=== PATIENT | male | born 1950 | race Caucasian/White ===

== ENCOUNTER 2017-02-04 11:37 | Inpatient (IN) ==
--- NOTE | 2017-02-04 13:14 | Emergency Department Note ---
Disposition Clinical Impression: NSTEMI (non-ST elevated myocardial infarction) Disposition: Admitted As Inpatient Condition: Fair Time of Disposition: 14:14 Chest Pain HPI - General Chief Complaint: ED Chest Pain Stated Complaint: Upper arms/shoulder pain,don't feel reight Time Seen by Provider: 02/04/17 12:00 Source: patient Limitations: no limitations Vital Signs Reviewed: Yes Nursing Notes Reviewed: Yes - History of Present Illness HPI Narrative: Presents with back pain which started today at home and is sharp and constant radiating across the back of both shoulders and also involves the chest. He does have associated diaphoresis and dyspnea. He denies any pleuritic aspect. Has had several years of lightheadedness but no worsening lightheadedness at this point. No pain or swelling of the lower extremities. No upper respiratory symptoms or blood in the urine or stool. No medication has been used. Social history: No smoking, occasional alcohol, no drugs. Family history positive for heart disease with his father Severity scale (1-10): 10 - Related Data Home Medications Medication Instructions Recorded Confirmed Aspirin [Lo-Dose Aspirin EC] 81 mg PO DAILY 02/04/17 02/04/17 Atorvastatin Calcium [Lipitor] 20 mg PO QPM 02/04/17 02/04/17 Cyanocobalamin (B-12) [Vitamin B12] 1,000 mcg PO DAILY 02/04/17 02/04/17 Lisinopril [Zestril] 10 mg PO DAILY 02/04/17 02/04/17 Multivit-Min/FA/Lycopen/Lutein [A 1 tab PO DAILY 02/04/17 02/04/17 Thru Z Select Multivit Tab] Allergies Allergy/AdvReac Type Severity Reaction Status Date / Time Penicillins Allergy Hives Verified 02/04/17 11:48 Review of Systems: Constitutional: No fever Vision: No blurred vision ENT: No rhinorrhea Respiratory: No cough Allergic: No allergies : No blood in urine GI: No blood in stool Hematologic: No bruising Dermatologic: + rash bet fingers left hand Musculoskeletal: No pain in the extremities Neuro: No numbness of the extremities Chest Pain PMH - Past Medical History Medical history: Reports: hyperlipidemia, hypertension Psychiatric history: Reports: no psych history - Social History Smoking Status: Never smoker Alcohol use: Reports: occasionally Drug use: Reports: none Physical Exam CONSTITUTIONAL: Well-appearing; well-nourished; A&O X 3, in no apparent distress HEAD: Normocephalic; atraumatic EYES: PERRL, no scleral icterus NOSE: The nose is normal in appearance without rhinorrhea NECK: No JVD or distended neck veins RESP: Normal chest excursion with respiration; breath sounds clear and equal bilaterally; no wheezes, rhonchi, or rales CARD: Regular rhythm, without murmurs, rub or gallop Chest: Normal in appearance ABD: Non-distended; non-tender, soft, without rigidity, rebound or guarding,no pulsatile mass SKIN: Normal for age and race; warm and dry without diaphoresis ; no apparent lesions EXTREMITIES: Pulses are 2 plus and equal times 4 extremities, no peripheral edema or calf muscle pain - General Limitations: no limitations General appearance: alert, in no apparent distress Course Vital Signs Temperature 98.1 F 02/04/17 11:41 Pulse Rate 92 02/04/17 11:41 Respiratory Rate 20 02/04/17 11:41 Blood Pressure 214/111 02/04/17 11:41 O2 Sat by Pulse Oximetry 96 02/04/17 11:41 Temperature 98.1 F 02/04/17 11:41 Pulse Rate 71 02/04/17 14:44 Respiratory Rate 18 02/04/17 14:44 Blood Pressure 174/99 02/04/17 14:44 O2 Sat by Pulse Oximetry 97 02/04/17 14:44 Oxygen Delivery Oxygen Delivery Room Air Chest Pain - MDM Narrative Medical decision making narrative: I did see the patient upon arrival spoke with him and have reviewed the patient' s previous test results including a recent stress test showed reversible ischemia. The patient now does have pain across her shoulders, belching, dyspnea, diaphoresis and the concerns for ischemia. Likelihood of aortic dissection is very low however the patient will be admitted and watched closely. Chest x-ray is negative. The patient's symptoms likely represent acute coronary syndrome. I did review the EKG showed normal sinus rhythm with a rate of 84 without acute ischemic change. MD interval and QRS duration are normal. No evidence of arrhythmia. 1304 I did just see the patient again and the patient's repeat the blood pressure is 180/92. No antihypertensive therapy at this time 1316 I did review the patient's laboratory results with an elevated troponin and the patient will be admitted to the hospital. I did see him again just a few minutes ago and his discomfort is almost completely resolved. EKG will be repeated, he has not yet taken his aspirin today so receive aspirin 325 mg as well as 1 inch nitroglycerin paste. I did consult cardiology so they can see the patient as a inpatient the patient does not have emergent catheterization indications at this time. The patient is comfortable to approach. I did speak with the hospitalist who accepted the patient for admission. 1413 I did review the repeat EKG showing normal sinus rhythm with a rate of 69 without acute ischemic changes. The hospitalist does recommend a CT of the chest and so I did order discussed. 1449 - Medical Records Medical records reviewed: Yes I reviewed the patient's medical records. - Lab Data Lab results reviewed: Yes I reviewed the patient's lab results. Result diagrams: 02/04/17 13:18 02/04/17 13:18 Lab Results 02/04/17 02/04/17 02/04/17 Range/Units 13:18 13:18 13:18 WBC 8.1 (4.3-11.1) K/mcL RBC 4.36 (4.19-5.50) M/mcL Hgb 14.4 (12.9-16.9) g/dL Hct 42.0 (37.5-50.1) % MCV 96.3 (83.0-100.0) fL MCH 33.0 (28.0-33.3) pg MCHC 34.3 (31.6-35.5) g/dL RDW 12.9 (11.5-14.5) % Plt Count 187 (140-400) K/mcL MPV 8.5 L (9.4-12.4) fL Immature Gran % 0.4 (0-4) % Seg Neutrophils % 76.2 % Lymphocytes % 14.9 % Monocytes % 6.6 % Eosinophils % 1.5 % Basophils % 0.4 % Neutrophils # 6.2 (1.6-8.9) K/mcL Lymphocytes # 1.2 (0.6-4.6) K/mcL Monocytes # 0.5 (0.0-1.3) K/mcL Eosinophils # 0.1 (0.0-0.6) K/mcL Basophils # 0.0 (0.0-0.2) K/mcL Sodium 138 (136-145) mEq/L Potassium 4.3 (3.5-4.5) mEq/L Chloride 104 (98-109) mEq/L Carbon Dioxide 26 (19-29) mEq/L BUN 11 (8-26) mg/dL Creatinine 0.82 (0.72-1.25) mg/dL Est GFR ( Amer) > 60 (> 60) Est GFR (Non-Af Amer) > 60 (> 60) BUN/Creatinine Ratio 13 (6-26) Glucose 127 H (70-99) mg/dL Calculated Osmolality 287 (280-300) Calcium 9.8 (8.6-10.8) mg/dL Troponin I 0.09 H* (0-0.03) ng/mL - Radiology Data Radiology results reviewed: Yes I reviewed the patient's radiology results. Critical Care Time Critical Care Time: No
[2017-02-04 13:23] LABS: Basophils % 0.4 %; Eosinophils # 0.1 K/mcL (0.0-0.6); Eosinophils % 1.5 %; Hemoglobin 14.4 g/dL (12.9-16.9); Immature Granulocytes % 0.4 % (0-4); Lymphocytes # 1.2 K/mcL (0.6-4.6); Lymphocytes % 14.9 %; Mean Corpuscular HGB Conc 34.3 g/dL (31.6-35.5); Mean Corpuscular Volume 96.3 fL (83.0-100.0); Mean Platelet Volume 8.5 fL (9.4-12.4); Monocytes # 0.5 K/mcL (0.0-1.3); Monocytes % 6.6 %; Neutrophils # 6.2 K/mcL (1.6-8.9); Platelet Count 187 K/mcL (140-400); Red Blood Count 4.36 M/mcL (4.19-5.50); Red Cell Distribution Width 12.9 % (11.5-14.5); Segmented Neutrophils % 76.2 %
[2017-02-04 13:35] LABS: BUN/Creatinine Ratio 13 (6-26); Blood Urea Nitrogen 11 mg/dL (8-26); Calcium 9.8 mg/dL (8.6-10.8); Carbon Dioxide 26 mEq/L (19-29); Chloride 104 mEq/L (98-109); Glucose 127 mg/dL (70-99); Osmolality,Calculated 287 (280-300); Potassium 4.3 mEq/L (3.5-4.5); Sodium 138 mEq/L (136-145); eGFR For African Americans > 60 (> 60); eGFR For Non-African Americans > 60 (> 60)
[2017-02-04] MEDS ORDERED: Aspirin 325 MG TABLET PO ONE (14:11)
[2017-02-04] MEDS ORDERED: Nitroglycerin 1 INCH/GM PACKET TP ONE (14:11)
[2017-02-04] MEDS ORDERED: *HR* Morphine 2 MG/ML SYRINGE IVP ONE (15:59)
[2017-02-04] MEDS ORDERED: *HR* Morphine 2 MG/ML SYRINGE IVP PRN (16:15)
[2017-02-04] MEDS ORDERED: Naloxone 0.4 MG/ML INJ IVP PRN (16:15)
--- NOTE | 2017-02-04 16:31 | Internal Med History&Physical ---
Date of Encounter: 02/04/17 Time of Encounter: 16:28 Assessment and Plan (1) NSTEMI (non-ST elevated myocardial infarction) Current visit: Yes Status: Acute Chest pain/non-STEMI 66/male Was previously evaluated and has a positive stress test. Came in with a left-sided precordial pain and shoulder pain on the left side Noted that in the emergency room the troponin was 0.09. Cardiology was consulted. Plan: Admitted as an observation. We will trend the troponin. Aspirin/statin/lisinopril We will add beta fredo. We will follow recommendations from cardiology. (2) Hypertension Current visit: Yes Status: Acute Patient's blood pressure is controlled and we will continue the same medication right now. Qualifiers: Hypertension type: essential hypertension Qualified Code(s): I10 - Essential (primary) hypertension (3) Positive cardiac stress test Current visit: Yes Status: Acute Patient is a positive stress test/now patient has a positive troponin. We will wait for cardiology recommendations. (4) DVT prophylaxis Current visit: Yes Status: Acute SCD Medical decision making this patient has a moderate to severe risk of worsening in spite of being on appropriate medication due to the underlying complex comorbid conditions. Internal Medicine - H&P: HPI Chief complaint: Chest pain Admitted From: Emergency Dept Plans for Post Hospital Care: Home History of present illness: PCP: Dr. Perez from [facility]. brief past medical history: hypertension, hyperlipidemia, coronary artery disease and mild obesity. History of present medical illness: Patient was experiencing left-sided precordial chest pain, nonradiating initially followed by radiating to the left arm, worsened with exercise and relieved by rest. Patient was concerned about this pain and that was the reason he was trying to get all of his primary care. He was not able to get out of his primary care and that is the reason he came to the emergency room. Patient denies shortness of breath, abdominal pain, nausea, vomiting, dizziness and diarrhea. Workup in the emergency room: Patient was evaluated in the emergency room. Basic workup in terms of lab draw was done. CTA chest was done which was negative for any pulmonary emboli/abdominal aortic aneurysm. Reason for admission: Chest pain to rule out acute coronary syndrome: Heart score: 4 Family history: Noncontributory Past Med Surg Social Fam HX - Past Medical History Medical history: hyperlipidemia, hypertension Psychiatric history: no psych history - Social History Smoking Status: Never smoker Smokeless Tobacco Status: No Alcohol use: occasionally Drug use: none - Family History Father Living Status: Age at : 60 Hx Family Cardiac Disorders: Yes ([place]) Hx Family Respiratory Disorders: No Hx Family Cancer: No Hx Family GI Disorders: No Hx Family Genitourinary Disorders: No Hx Family Endocrine Disorder: No Hx Family Musculoskeletal Disorders: No Hx Family Neuromuscular Disorders: No Hx Family Neurologic Disorders: No Hx Family HEENT Disorders: No Hx Family Autoimmune Disorders: No Hx Family Reproductive Disorders: No Hx Family Psychosocial Disorders: No Hx Family Medical Disorders: No Internal Medicine - H&P: Meds Aspirin [Lo-Dose Aspirin EC] 81 mg PO DAILY 02/04/17 [History] Atorvastatin Calcium [Lipitor] 20 mg PO QPM 02/04/17 [History] Cyanocobalamin (B-12) [Vitamin B12] 1,000 mcg PO DAILY 02/04/17 [History] Lisinopril [Zestril] 10 mg PO DAILY 02/04/17 [History] Multivit-Min/FA/Lycopen/Lutein [A Thru Z Select Multivit Tab] 1 tab PO DAILY 12/13 [History] 3 Allergy/AdvReac Type Severity Reaction Status Date / Time Penicillins Allergy Hives Verified 02/04/17 11:48 All Systems PM: A 10-system review of systems was performed and is negative for pertinent findings except as documented above in the HPI. - Constitutional Constitutional: no chills, no fever(s), no night sweats - EENT Eyes: no change in vision, no discharge, no pain, no photophobia Ears: no ear discharge, no ear pain, no tinnitus Nose, mouth and throat: no dysphagia, no nasal discharge, no neck pain, no sore throat - Cardiovascular Cardiovascular ROS IM: chest pain, diaphoresis, dyspnea, no lightheadedness, no palpitations, no syncope Additional comments: Left shoulder pain - Respiratory Respiratory: no cough, no dyspnea, no wheezing, no excessive phlegm production - Gastrointestinal Gastrointestinal: no abdominal pain, no diarrhea, no hematemesis, no hematochezia, no melena, no nausea, no vomiting - Musculoskeletal Musculoskeletal ROS IM: no numbness, no tingling - Integumentary Integumentary IM: no rash, no unusual bruising - Neurological Neurological ROS: no confusion, no convulsions, no focal weakness, no numbness, no tingling, no tremor(s) - Hematologic/Lymphatic Hematologic/Lymphatic: no easy bruising - Constitutional Vitals: Temp Pulse Resp BP Pulse Ox 97.6 F 74 19 194/116 96 02/04/17 15:22 02/04/17 15:22 02/04/17 15:22 02/04/17 15:22 02/04/17 15:22 General appearance: Present: A&O X 3, pleasant, no acute distress, answers questions appropriately - Head Head exam: Present: atraumatic, normocephalic - Eye Eye exam: Present: PERRL, conjuntiva pink, sclera anicteric Pupils: Present: PERRL - Neck Neck exam general surgery: Present: supple, trachea midline. Absent: lymphadenopathy - Respiratory Respiratory exam: Present: CTAB. Absent: accessory muscle use, rales, rhonchi, wheezes - Cardiovascular Cardiovascular exam: Present: RRR, +S1, +S2. Absent: diastolic murmur, gallop, rubs, systolic murmur - GI/Abdominal GI/Abdominal exam: Present: normal bowel sounds, soft, no peritoneal signs. Absent: distended, tenderness - Extremities Exam Extremities exam: Present: warm, radial pulses palpable and symmetrical. Absent : calf tenderness, cyanotic, pedal edema - Neurological Exam Neurological exam: Present: CN II-XII intact, oriented X3, no focal deficits. Absent: pronater drift, facial droop, speech deficit - Skin Skin exam: Present: dry, intact Internal Med - H&P Results - Labs CBC & Chem 7: 02/04/17 13:18 02/04/17 13:18 - Impressions ITS Impressions Abdomen/Pelvis CTA 02/04/17 14:45 IMPRESSION: No acute process. No acute pulmonary emboli, aortic dissection or aneurysm is noted. D/ / Yamil Arzate MD / Yamil Arzate MD Interpreting Provider: Yamil Arzate MD
[2017-02-04] MEDS ORDERED: *HR* Heparin 5,000 UNIT/ML VIAL IVP ONE (18:24)
[2017-02-04] MEDS ORDERED: *HR* Heparin 5,000 UNIT/ML VIAL IVP PRN ×2 (18:24)
[2017-02-04] MEDS ORDERED: Nitroglycerin 25 MG/250 ML INFUS..BTL IVC SCH ×2 (18:30→18:44)
--- NOTE | 2017-02-04 18:31 | Electrocardiograph Report ---
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
[2017-02-04] MEDS ORDERED: 0.9 % Sodium Chloride 250 ML ONE (18:53)
[2017-02-04 19:07] LABS: Hematocrit 41.2 % (37.5-50.1); Hemoglobin 14.2 g/dL (12.9-16.9); Mean Corpuscular HGB Conc 34.5 g/dL (31.6-35.5); Mean Corpuscular Hemoglobin 33.4 pg (28.0-33.3); Mean Corpuscular Volume 96.9 fL (83.0-100.0); Mean Platelet Volume 8.6 fL (9.4-12.4); Platelet Count 205 K/mcL (140-400); Red Blood Count 4.25 M/mcL (4.19-5.50); Red Cell Distribution Width 12.9 % (11.5-14.5)
[2017-02-04 19:13] LABS: Activated Partial Thrombo Time 30.3 Seconds (26.0-36.0); INR 1.1; Prothrombin Time 11.9 Seconds (9.4-12.1)
[2017-02-04] MEDS: Heparin 25,000 UNIT/500 ML D5W 25,000 UNIT/500 ML MLS IVC SCH (19:52)
[2017-02-05 05:52] LABS: Basophils # 0.1 K/mcL (0.0-0.2); Basophils % 0.5 %; Eosinophils # 0.2 K/mcL (0.0-0.6); Eosinophils % 1.7 %; Hematocrit 40.8 % (37.5-50.1); Hemoglobin 14.1 g/dL (12.9-16.9); Immature Granulocytes % 0.5 % (0-4); Lymphocytes # 2.7 K/mcL (0.6-4.6); Lymphocytes % 25.4 %; Mean Corpuscular HGB Conc 34.6 g/dL (31.6-35.5); Mean Corpuscular Hemoglobin 33.6 pg (28.0-33.3); Mean Corpuscular Volume 97.1 fL (83.0-100.0); Mean Platelet Volume 9.1 fL (9.4-12.4); Monocytes # 0.7 K/mcL (0.0-1.3); Neutrophils # 6.8 K/mcL (1.6-8.9); Platelet Count 228 K/mcL (140-400); Red Cell Distribution Width 13.1 % (11.5-14.5); Segmented Neutrophils % 64.9 %
[2017-02-05 05:58] LABS: INR 1.1; Prothrombin Time 11.8 Seconds (9.4-12.1)
[2017-02-05 06:24] LABS: Alanine Aminotransferase 57 Units/L (0-55); Albumin 3.7 g/dL (3.5-5.0); Alkaline Phosphatase 74 Units/L (38-126); Aspartate Amino Transferase 127 Units/L (5-34); BUN/Creatinine Ratio 11 (6-26); Bilirubin,Total 0.7 mg/dL (0.2-1.2); Blood Urea Nitrogen 9 mg/dL (8-26); Calcium 9.2 mg/dL (8.6-10.8); Carbon Dioxide 27 mEq/L (19-29); Chloride 102 mEq/L (98-109); Chol/HDL Ratio 3.2 (0-4.9); Cholesterol 130 mg/dL (< 200); Globulin 3.6 g/dL (2.4-3.5); Glucose 132 mg/dL (70-99); HDL Cholesterol 41 mg/dL (40-59); LDL Cholesterol,Calculated 67 mg/dL (0-99); Osmolality,Calculated 285 (280-300); Phosphorous 3.2 mg/dL (2.3-4.7); Potassium 4.1 mEq/L (3.5-4.5); Sodium 137 mEq/L (136-145); Total Protein 7.3 g/dL (6.0-8.3); Triglycerides 109 mg/dL (< 150); eGFR For African Americans > 60 (> 60); eGFR For Non-African Americans > 60 (> 60)
--- NOTE | 2017-02-05 08:39 | Cardiology Consult Note ---
Date of Encounter: 02/05/17 Time of Encounter: 08:00 Assessment and Plan (1) NSTEMI (non-ST elevated myocardial infarction) Current Visit: Yes Status: Acute Troponin elevated, 0.09, 1.35, 5.64, 21.76. No previous history of CAD. Cardiac risk factors include HTN, HLD, and family history (brother underwent CABG age 50). TTE pending. [facility] R/B/A reviewed with patient and and patient agrees to proceed. Continue heparin gtt. No NTG due to causing hypotension. Continue asa, statin, and bb. Cardiac rehab consult. (2) Hypertension Current Visit: Yes Status: Acute Htn urgency on admission. B/p improved. Continue lopressor and restart home dose of zestril. Qualifiers: Hypertension type: essential hypertension Qualified Code(s): I10 - Essential (primary) hypertension Discussion w patient/family: The assessment and plan as outlined above was discussed with the patient and/or family members who expressed understanding and agreement. All questions were answered. Thank you for involving us in the care of your patient. Please call with any questions. History of Present Illness Consult date: 02/05/17 Requesting physician: Mike Trevino Consult reason: NSTEMI Chief complaint: bilateral shoulder and arm pain History of present illness: Mr. Frisa is a 66-year-old with a history of essential HTN, carotid artery stenosis, HLD, and previous abnormal stress test who presented with bilateral shoulder, arm, and back pain. The pain started when he was eating breakfast. Reports pain was severe 10/10 on the pain scale. He presented to the ED and his b/p was found to be 214/111. He was given NTG with some relief of pain. He reports the NTG made him feel warm and really lightheaded. He was started on NTG gtt and his b/p dropped in the 80's systolic. NTG was discontinued. He was started on heparin gtt and reports his pain improved. Initial EKG showed no acute ST changes. Troponin was 0.09. Troponin trended upward overnight to as high as 21.76 this morning. He reports mild pain in his shoulders this morning. Patient reported exertional dyspnea and lightheadedness intermittently over the last month. Mild shoulder pain at times. He underwent stress test earlier this year and was found to have a small, distal inferolateral defect possibly due to ischemia. Medical therapy initially recommended due to low risk findings. Reports he initially did well. Symptoms started again one month ago. Previous testing: Holter monitor 11/09/2014: Rare PVCs, PACs. No sustained arrhythmias. Average heart rate 75. Holter monitor 10/16/2016: Average heart rate 75. Occasional PVCs. Rare PACs. No sustained arrhythmias. TTE 11/06/2014: LVEF 60-65%. Moderate diastolic dysfunction. Normal LV, RV size and function. No significant valvular dysfunction. No evidence of pulmonary hypertension. Pharmacological nuclear stress test 10/23/2016: Small, mild intensity, reversible distal inferolateral defect possibly due to ischemia. Gated EF 67%. Carotid duplex 10/23/2016: Right proximal ICA moderate stenosis. Left carotid system minimal plaque formation. Past Med Surg Social Fam HX - Past Medical History Medical history: hyperlipidemia, hypertension, other (PVD) Psychiatric history: no psych history - Social History Smoking Status: Never smoker Smokeless Tobacco Status: No Alcohol use: occasionally Drug use: none - Family History Father Living Status: Age at : 60 Hx Family Cardiac Disorders: Yes ([place]) Hx Family Respiratory Disorders: No Hx Family Cancer: No Hx Family GI Disorders: No Hx Family Genitourinary Disorders: No Hx Family Endocrine Disorder: No Hx Family Musculoskeletal Disorders: No Hx Family Neuromuscular Disorders: No Hx Family Neurologic Disorders: No Hx Family HEENT Disorders: No Hx Family Autoimmune Disorders: No Hx Family Reproductive Disorders: No Hx Family Psychosocial Disorders: No Hx Family Medical Disorders: No Medications and Allergies Aspirin [Lo-Dose Aspirin EC] 81 mg PO DAILY 02/04/17 [History] Atorvastatin Calcium [Lipitor] 20 mg PO QPM 02/04/17 [History] Cyanocobalamin (B-12) [Vitamin B12] 1,000 mcg PO DAILY 02/04/17 [History] Lisinopril [Zestril] 10 mg PO DAILY 02/04/17 [History] Multivit-Min/FA/Lycopen/Lutein [A Thru Z Select Multivit Tab] 1 tab PO DAILY 12/13 [History] 3 Allergy/AdvReac Type Severity Reaction Status Date / Time Penicillins Allergy Hives Verified 02/04/17 11:48 All Systems Review: A 10-system review of systems was performed and is negative for pertinent findings except as documented above in the HPI. Physical Examination Vital Signs, Last 4 Hours Temp Pulse Resp BP Pulse Ox 02/05/17 06:51 98.0 F 70 16 141/93 93 General: Conversant, No Apparent Distress HEENT: Atraumatic, Normocephaly, Mucus Membranes Moist Neck: No JVD, Normal carotid pulses Cardiac: Reg Rate and Rhythm, Normal S1 and S2, No Murmur Lungs: Normal Breath Sounds, No Wheeze, Rales, Rhonchi Neuro: Alert and responsive, No focal deficits noted Abdomen: Soft, Non-Tender Skin: No rashes noted on visualized skin Musculoskeletal: No Chest Wall Tenderness Extremities: No Clubbing, No Cyanosis, No Edema, Normal Pulses Results 02/05/17 04:45 02/05/17 04:45 Lab Results 02/04/17 02/05/17 02/05/17 22:38 01:31 04:45 WBC 10.5 Hgb 14.1 Hct 40.8 Plt Count 228 INR APTT 44.7 H Sodium Potassium Chloride Carbon Dioxide BUN Creatinine Glucose Calcium Magnesium Total Bilirubin AST ALT Alkaline Phosphatase Troponin I 5.64 H* B-Natriuretic Peptide 02/05/17 02/05/17 02/05/17 04:45 04:45 04:45 WBC Hgb Hct Plt Count INR 1.1 APTT Sodium 137 Potassium 4.1 Chloride 102 Carbon Dioxide 27 BUN 9 Creatinine 0.83 Glucose 132 H Calcium 9.2 Magnesium 2.0 Total Bilirubin 0.7 AST 127 H ALT 57 H Alkaline Phosphatase 74 Troponin I B-Natriuretic Peptide 189 H 02/05/17 04:45 WBC Hgb Hct Plt Count INR APTT Sodium Potassium Chloride Carbon Dioxide BUN Creatinine Glucose Calcium Magnesium Total Bilirubin AST ALT Alkaline Phosphatase Troponin I 21.76 H* B-Natriuretic Peptide - Imaging and Cardiology Echo: pending - EKG Interpretation EKG results cardiology: personally reviewed (Sr with no acute ST changes) Consult Discharge Plan - Plan Referrals: Alistair Perez MD [Primary Care Provider] -
[2017-02-05] MEDS ORDERED: Aspirin Enteric Coated 81 MG Tablet PO SCH (09:00)
[2017-02-05] MEDS ORDERED: *HR* Heparin 10,000 UNIT/10 ML VIAL ONE (09:26)
[2017-02-05] MEDS ORDERED: 0.9 % Sodium Chloride 1,000 ML ONE ×2 (09:26→09:49)
[2017-02-05] MEDS ORDERED: Heparin 1,000 UNITS/500 mL NS 500 ML ONE (09:26)
[2017-02-05] MEDS ORDERED: Nitroglycerin 1,000 MCG/10 ML VIAL IV ONE (09:26)
--- NOTE | 2017-02-05 09:38 | Pre-Sedation Evaluation ---
Pre-sedation evaluation - Pre-sedation checklist Date of procedure: 02/05/17 Procedure: [facility] Recent Vitals: Last Vital Signs Temp 98.0 F 02/05/17 06:51 Pulse 70 02/05/17 06:51 Resp 16 02/05/17 06:51 BP 141/93 02/05/17 06:51 Pulse Ox 93 02/05/17 06:51 H&P (including ROS) documented in medical record: Yes Previous reaction to sedatives/anesthetics: No Dietary Status: NPO after Midnight Dentition: No loose teeth or bridges Possible difficult airway: No ASA Classification *see protocol: CLASS II-Mild systemic disease Plan of Care: Pt appropriate candidate for procedure/moderate/conscious sedation
[2017-02-05] MEDS ORDERED: *HR* FentaNYL (PF) 100 MCG/2 ML VIAL ONE (09:49)
[2017-02-05] MEDS ORDERED: *HR* Midazolam HCl 2 MG/2 ML VIAL ONE (09:49)
[2017-02-05] MEDS ORDERED: Tirofiban 12.5 MG/250ML 12.5 MG/250 ML BAG ONE (10:09)
[2017-02-05] MEDS ORDERED: *HR* Ticagrelor 90 MG TABLET ONE (11:26)
[2017-02-05] MEDS ORDERED: *HR* HYDROcodone/Acet 5/325 mg TABLET PO PRN (11:36)
[2017-02-05] MEDS ORDERED: Acetaminophen 325 MG TABLET PO PRN (11:36)
[2017-02-05] MEDS ORDERED: *HR* Morphine 2 MG/ML SYRINGE IVP PRN (11:36)
--- NOTE | 2017-02-05 11:37 | Invasive Diagnostic Lab Proc ---
Name: Armaan Miller Date of Study: 02/05/2017 Date: 1950 Ht: 72.0in Medical Record#: [id number] Age: 66 Wt: 291.01lb Gender: Male BSA: 2.5 Order #: [id number] BMI: 39.42 Physicians Procedure Physician: William Perez MD Referring MD: Referring MD: Staff Name Position Time In Argelia Hernandez RT Scrub 09:44 AM Oleg Menard RN Chief Medical Director 09:44 AM Aline Cifuentes RN Monitor 09:44 AM Indications Indication Non-Stemi Procedures Performed Procedure L HRT ARTERY/VENTRICLE ANGIO Pre-Procedure Checklist Informed consent is complete signed and on chart. H&P is on chart. ID band is on and ID verified with patient. Patient NPO for procedure The procedure was described for the patient and questions were answered. Blood Pressure: 141/93 ECG is on chart. Rhythm: NSR Plan of Care Patient will tolerate the procedure without complications. Adequate level of comfort will be maintained. Hemodynamics will remain stable Patient will recover from procedure without complications. Respiratory function will be maintained. Cardiac rhythm will remain stable. Patient temperature will be maintained. Patient and/or family have verbalized understanding of the procedure. Patient Education Chief Complaint/Reason for Test: Cardiac Cath Developmental Category: Geriatric (65+ years) Developmentally Appropriate for Age: Yes Learning Barriers: None Education Needs: Procedure Education Method: Verbal Information Taught: Cardiac Cath Educational Evaluation: Able to repeat information Intravenous Access Time IV Size Location DC'd Fluid/Drip Rate Units RN 09:40 AM 18g 1 /" Patent On Arrival Lt Antecubital 0.9NaCl 25 ml/hr Oleg Menard RN Allergies Penicillins PCN Vital Signs Time BP (mmHg) HR (bpm) O2 Sat. RR (bpm) LOC 09:56 AM / % 5 = Fully awake and oriented or at pre-proc level 10:32 AM 150 / 99 76 97 % 26 10:37 AM 153 / 98 74 97 % 16 10:42 AM 152 / 99 75 96 % 15 10:47 AM 147 / 97 80 97 % 22 10:52 AM 156 / 97 78 96 % 15 10:57 AM 154 / 96 73 95 % 21 11:02 AM 155 / 100 77 96 % 19 11:07 AM 149 / 95 73 96 % 18 11:12 AM 142 / 82 83 96 % 14 09:52 AM 146 / 95 100 98 % 11 09:57 AM 140 / 89 82 96 % 15 10:02 AM 133 / 90 79 96 % 18 10:07 AM 137 / 93 80 96 % 15 10:12 AM 142 / 81 76 96 % 12 10:17 AM 145 / 91 76 96 % 17 10:22 AM 133 / 94 74 97 % 20 10:27 AM 142 / 98 71 97 % 15 09:56 AM / % 4 = Oriented but drowsy Procedural Medications Time Medication Dose Units Method Given By 09:55 AM Oxygen 2 L/min nasal cannula Oleg Menard RN 09:55 AM Versed 1 mg Intravenous Oleg Menard RN 09:55 AM Fentanyl 50 mcg Intravenous Oleg Menard RN 10:00 AM Lidocaine 2% 10 ml Subcutaneous William Perez MD 10:09 AM Aggrastat Bolus: 66.5 ml Intravenous Oleg Menard RN 10:10 AM Aggrastat 12.5mg/250ml 24 ml/hr Intravenous Oleg Menard RN 10:15 AM Heparin 5000 units Intravenous Oleg Menard RN 11:09 AM Nitroglycerin 100 mcg Intracoronary Tye Perez MD 11:09 AM Nitroglycerin 200 mcg Intracoronary Tye Perez MD 11:17 AM Brilinta 180 mg Orally Oleg Menard RN ASA Classification: CLASS II- Mild systemic disease (i.e. well-controlled diabetes, hypertension, asthma, cigarette smoking) Luna Score Preprocedure Postprocedure Activity 2- Moves 4 extremities sustained head lift Activity Circulation 2- SBP +/= 20 points of pre-anesthetic level Circulation Consciousness 2- Awake and alert oriented x 3 Consciousness O2 Saturation 2- Able to maintain O2 satruation of 92% on room air O2 Saturation Respiratory 2- Able to deep breathe and cough well Respiratory Total Score 10 Total Score Contrast Agent: Isovue Diagnostic Contrast: 407 ml Total Contrast: 407 ml Fluoro Dose: 2689 mGy Activated Clotting Time Time Seconds to Clot 10:13 AM 113 10:54 AM 283 Procedure Log Time Note Enter By 09:40 AM Pt arrived to process laboratory specialist 2 at 09:40 liliana 09:40 AM Wilfredo paged/called 09:40. liliana 09:40 AM Wilfredo responded and notified patient is ready 09:40 [facility] 09:44 AM Argelia Hernandez Position: Scrub Time in: :44 [facility] 09:44 AM Oleg Menard RN Position: Chief Medical Director Time in: :44 [facility] 09:44 AM Aline Cifuentes RN Position: Monitor Time in: :44 [facility] 09:44 AM Patient charges- Angio tray pack, Navilyst 3mm J, Pulse Oximetry and ACIST tubing and transducer [facility] 09:44 AM Case Delayed no, inpatient [facility] 09:50 AM Physician arrived 09:50 [facility] 09:50 AM Meet and greet completed [facility] 09:50 AM Sign in performed according to hospital policy. [facility] 09:50 AM Procedure start 09:50 [facility] 09:51 AM CathStat 09:51 AM Vitals capture started with the following parameters, Patient=Adult, Interval=5 min, Initial Bbvfltoa=417 mmHg, Deflation Rate=5 mmHg, Cuff placed on Left Arm 09:52 AM HO=391 bpm, VURN=775/95 mmhg, SpO2=98.0 %, Resp=11 B/min 09:55 AM Hair removed from procedure site in procedure lab using clippers. Bilateral groin prepped with Chloraprep by Aline Cifuentes RN, safety strap applied then patient was draped. Skin intact. [facility] 09:55 AM Time: 09:55 Oxygen on at 2 L/min per [facility] cann[facility] AM Time: 09:55 Versed 1 mg Intravenous Given by [facility] 09:55 AM Time: 09:55 Fentanyl 50 mcg Intravenous Given by [facility] 09:56 AM Time: 09:56 Patient comfortable and pain free: Yes [facility] :56 AM Time: 09:56LOC: 5 = Fully awake and oriented or at pre-proc level [facility] 09:56 AM Clinical Presentation: Non-STEMI [facility] 09:57 AM HR=82 bpm, TJLE=626/89 mmhg, SpO2=96.0 %, Resp=15 B/min, Comment=nsr 09:58 AM Pressure channel 1 zeroed. 10:00 AM Time out performed according to hospital policy scoates 10:00 AM Time: 10:00 10 ml Lidocaine 2% to right groin Subcutaneous Given by William Perez MD scoates 10:01 AM Micro-Introducer Kit utilized for sheath placement scoates 10:01 AM Access obtained by percutaneous puncture. 6Fr 10cm Terumo Aurora sheath placed in right Femoral artery. [id number] scoates 10:01 AM 3mls hand injected into the femoral artery scoates 10:02 AM HR=79 bpm, UPZZ=350/90 mmhg, SpO2=96.0 %, Resp=18 B/min 10:02 AM 5Fr FR 4 catheter inserted over the wire DNC scoates 10:03 AM jwire removed scoates 10:04 AM Recorded Pressure: LV, HR=77, Condition=Condition 1 (Left Ventricle) LV 121/16/18 10:04 AM Recorded Pressure: LV, Ao, HR=75, Condition=Condition 1 (Left Ventricle) LV 124/16/20, (Aorta) Ao 118/51/92 10:04 AM Recorded Pressure: Ao, HR=74, Condition=Condition 1 (Aorta) Ao 118/87/102 10:05 AM RCA angiography performed in multiple views. scoates 10:05 AM Catheter removed scoates 10:06 AM 5Fr FL 4 catheter inserted over the wire DN scoates 10:06 AM Lesion found in Mid RCA. Pre Stenosis: 50 Pre ELO Flow: scoates 10:07 AM LCA angiography performed in multiple views. scoates 10:07 AM HR=80 bpm, EBJH=605/93 mmhg, SpO2=96.0 %, Resp=15 B/min, Comment=sr 10:07 AM Recorded Pressure: Ao, HR=79, Condition=Condition 1 (Aorta) Ao 117/86/101 10:07 AM PCI Status Urgent scoates 10:08 AM Guide catheter removed intact. scoates 10:09 AM Lesion found in Mid LAD. Pre Stenosis: 90 Pre ELO Flow: 3: Partial Flow/Perfusion (> 1 but < 3) scoates 10:09 AM Lesion found in Distal Circumflex. Pre Stenosis: 80 Pre ELO Flow: 3: Complete and Brisk Flow/Perfusion scoates 10:10 AM Time: 10:09 Aggrastat Bolus: 66.5 ml Intravenous Given by Oleg Menard RN Sesay pump scoates 10:10 AM 5Fr Pigtail catheter inserted over the wire DNC scoates 10:11 AM Time: 10:10 Aggrastat 12.5mg/250ml 24 ml/hr Intravenous Given by Oleg Menard RN Sesay pump scoates 10:11 AM Catheter selectively placed in left ventricle scoates 10:11 AM Recorded Pressure: LV, HR=78, Condition=Condition 1 (Left Ventricle) LV 131/17/21 10:12 AM HR=76 bpm, TYCU=935/81 mmhg, SpO2=96.0 %, Resp=12 B/min, Comment=sr 10:12 AM Bolus angiogram of left Ventricle complete: 10 ml/sec for a total of 20 mls scoates 10:13 AM Bolus angiogram of left Ventricle complete: 1020 ml/sec for a total of mls scoates 10:14 AM At 10:13 the ACT was 113 seconds. scoates 10:14 AM Coronary Dominance: right scoates 10:14 AM Catheter removed scoates 10:14 AM 6Fr XB3.5 [place] Bright-Tip guide catheter was used to cannulate the PCI vessel successfully. reused? No scoates 10:15 AM .014 Samurai 190cm guide wire across target lesion- unsuccessful. reused? No scoates 10:15 AM Inflation device was opened. scoates 10:15 AM Recorded Pressure: Ao, HR=75, Condition=Condition 1 (Aorta) Ao 133/83/106 10:16 AM Time: 10:15 Heparin 5000 units Intravenous Given by Oleg Mneard RN scoates 10:17 AM HR=76 bpm, LRTV=921/91 mmhg, SpO2=96.0 %, Resp=17 B/min, Comment=sr 10:19 AM Recorded Pressure: Ao, HR=80, Condition=Condition 1 (Aorta) Ao 120/85/102 10:20 AM Lesion found in 1st Marginal. Pre Stenosis: 65 Pre ELO Flow: 3: Complete and Brisk Flow/Perfusion scoates 10:20 AM Lesion found in Distal LAD. Pre Stenosis: 70 Pre ELO Flow: 3: Complete and Brisk Flow/Perfusion scoates 10:20 AM guide wire removed, intact, to be reshaped scoates 10:21 AM wire reinserted to circ scoates 10:22 AM HR=74 bpm, IIUA=546/94 mmhg, SpO2=97.0 %, Resp=20 B/min, Comment=sr 10:23 AM Guide wire removed intact. scoates 10:24 AM .014 Whisper 190cm guide wire across target lesion- successful. reused? No scoates 10:26 AM wire inserted into the LAD scoates 10:27 AM HR=71 bpm, GEJJ=482/98 mmhg, SpO2=97.0 %, Resp=15 B/min, Comment=sr 10:27 AM 2.0 mm x 8 mm Emerge Monorail balloon across target lesion- successful. reused? No scoates 10:27 AM Recorded Pressure: Ao, HR=78, Condition=Condition 1 (Aorta) Ao 133/87/109 10:28 AM Balloon inflated @ 6 mckenna for 10 seconds scoates 10:29 AM Balloon inflated @ 8 mckenna for 8 seconds scoates 10:29 AM Balloon catheter removed intact. scoates 10:31 AM 3.5mm x 16mm Synergy drug-eluting stent across target lesion- successful Lot #[id number] scoates 10:32 AM HR=76 bpm, ENTU=859/99 mmhg, SpO2=97.0 %, Resp=26 B/min, Comment=sr 10:32 AM Stent deployed @ 9 mckenna for 8 seconds scoates 10:33 AM Lesion found in 1st Diagonal. Pre Stenosis: 60 Pre ELO Flow: scoates 10:34 AM Stent deployed @ 12 mckenna for 8 seconds scoates 10:34 AM Stent delivery system removed intact. scoates 10:34 AM Recorded Pressure: Ao, HR=77, Condition=Condition 1 (Aorta) Ao 133/89/111 10:36 AM 2.25mm x 12mm Synergy drug-eluting stent across target lesion- successful Lot #[id number] scoates 10:37 AM HR=74 bpm, WBQV=774/98 mmhg, SpO2=97.0 %, Resp=16 B/min, Comment=sr 10:38 AM Stent deployed @ 11 mckenna for 10 seconds scoates 10:39 AM Stent balloon reinflated @ 16 mckenna for 16 seconds scoates 10:40 AM Stent balloon reinflated @ 10 mckenna for 12 seconds scoates 10:40 AM Stent balloon reinflated @ 14 mckenna for 20 seconds scoates 10:42 AM Recorded Pressure: Ao, HR=75, Condition=Condition 1 (Aorta) Ao 148/98/125 10:42 AM HR=75 bpm, ZJNQ=509/99 mmhg, SpO2=96.0 %, Resp=15 B/min, Comment=sr 10:42 AM Stent delivery system removed intact. scoates 10:43 AM 2.0 mm x 8mm NC Emerge balloon across target lesion- successful. reused? No scoates 10:44 AM Balloon inflated @ 16 mckenna for 14 seconds scoates 10:44 AM Balloon inflated @ 14 mckenna for 5 seconds scoates 10:45 AM Stent deployed @ 16 mckenna for 6 seconds scoates 10:45 AM Balloon inflated @ 16 mckenna for 6 seconds scoates 10:45 AM Balloon inflated @ 16 mckenna for 6 seconds scoates 10:47 AM HR=80 bpm, ELXB=595/97 mmhg, SpO2=97.0 %, Resp=22 B/min, Comment=sr 10:48 AM Balloon catheter removed intact. scoates 10:48 AM 3.5 mm x 12mm NC Emerge balloon across target lesion- successful. reused? No scoates 10:48 AM Balloon inflated @ 18 mckenna for 6 seconds scoates 10:48 AM Balloon inflated @ 18 mckenna for 5 seconds scoates 10:49 AM Recorded Pressure: Ao, HR=81, Condition=Condition 1 (Aorta) Ao 139/90/114 10:49 AM Balloon catheter removed intact. scoates 10:50 AM ACT drawn scoates 10:50 AM Recorded ECG: HR=78 Condition=Condition 1 10:52 AM HR=78 bpm, IEKZ=041/97 mmhg, SpO2=96.0 %, Resp=15 B/min, Comment=sr 10:52 AM Recorded Pressure: Ao, HR=78, Condition=Condition 1 (Aorta) Ao 148/94/119 10:54 AM At 10:54 the ACT was 283 seconds. scoates 10:55 AM whisper wire repositioned down the circ scoates 10:55 AM 2.0x8 balloon reinserted scoates 10:57 AM HR=73 bpm, OHPA=442/96 mmhg, SpO2=95.0 %, Resp=21 B/min, Comment=sr 11:00 AM Balloon inflated @ 6 mckenna for 9 seconds scoates 11:01 AM Mid/Distal Left Anterior Descending Coronary Artery and diagonal branches with 90% stenosis. If graft is supplying this area, 0 % stenosis scoates 11:01 AM Circumflex, Obtuse Marginal, Left Posterior Descending, and Left Posterolateral Coronary Arteries with 80 % stenosis. If graft is supplying this area, 0 % stenosis scoates 11:01 AM Right Coronary, Right Posterior Descending Arteries with Right Posterolateral and Acute Marginal branches with 50 % stenosis. If graft is supplying this area, 0 % stenosis scoates 11:02 AM Balloon inflated @ 6 mckenna for 9 seconds scoates 11:02 AM Balloon inflated @ 10 mckenna for 10 seconds scoates 11:02 AM HR=77 bpm, LQNQ=661/100 mmhg, SpO2=96.0 %, Resp=19 B/min, Comment=sr 11:02 AM Balloon inflated @ 10 mckenna for 10 seconds scoates 11:03 AM Balloon catheter removed intact. scoates 11:03 AM Recorded Pressure: Ao, HR=72, Condition=Condition 1 (Aorta) Ao 143/90/114 11:05 AM 2.25mm x 8mm Promus Premier Rx drug-eluting stent across target lesion- successful Lot #[id number] scoates 11:06 AM Stent deployed @ 11 mckenna for 12 seconds scoates 11:06 AM Recorded Pressure: Ao, HR=74, Condition=Condition 1 (Aorta) Ao 133/92/112 11:07 AM Stent balloon reinflated @ 16 mckenna for 6 seconds scoates 11:07 AM HR=73 bpm, ERCP=212/95 mmhg, SpO2=96.0 %, Resp=18 B/min, Comment=sr 11:08 AM Stent delivery system removed intact. scoates 11:09 AM Time: 11:09 Nitroglycerin 100 mcg Intracoronary Given by Tye Perez MD scoates 11:10 AM Time: 11:09 Nitroglycerin 200 mcg Intracoronary Given by Tye Perez MD scoates 11:11 AM Recorded Pressure: Ao, HR=84, Condition=Condition 1 (Aorta) Ao 118/87/101 11:12 AM HR=83 bpm, YOOH=277/82 mmhg, SpO2=96.0 %, Resp=14 B/min, Comment=sr 11:13 AM Guide wire removed intact. scoates 11:13 AM Guide catheter removed intact. scoates 11:13 AM Procedure completed at 11:13 scoates 11:14 AM Sign out completed: Radiation Dose 2689 mGy Fluoro Time: 22.7 Isovue 370 - 200ml contrast 407 ml given by William Perez MD. Complications: NoneCardiac Rehab Consult needed: YesConfirmed administered medications: Yes scoates 11:14 AM Arterial sheath pulled, Angio-seal closure device used and was Successful [id number] S/N. scoates 11:15 AM Post ECG NSR scoates 11:15 AM Post Blood Pressure 142/82 scoates 11:15 AM 11:15 Post Pulses Bilateral DP & PT 1+ scoates 11:16 AM Information taught PCI, Cardiac Cath, and Angioseal scoates 11:16 AM Education needs Procedure, Plan of Care, and Responsibilities of Patient in Care scoates 11:16 AM Learning barriers :None scoates 11:17 AM Time: 09:56LOC: 4 = Oriented but drowsy scoates 11:17 AM Time: 09:56 Patient comfortable and pain free: Yes scoates 11:17 AM Time: 11:17 Brilinta 180 mg Orally Given by Oleg Menard RN scoates 11:18 AM Education Methods Verbal scoates 11:18 AM Education evaluation Able to repeat information scoates 11:18 AM Site status No bleeding/hematoma - Rt Groin as reported by Argelia Hernandez RT at 11:18 scoates 11:18 AM Opsite applied scoates 11:18 AM Plavix, Effient or Brilinta given Yes scoates 11:18 AM Delay to floor No scoates 11:18 AM Family placed in consult room. scoates 11:18 AM Complications: None scoates 11:24 AM Report given to Annika PETER Pt taken to 2N Room #9. 11:24 scoates 11:24 AM Isovue 370 - 200ml contrast 407 ml given by William Perez MD. scoates 11:24 AM Isovue 370 - 200ml,2 Bottle(s) used. scoates 11:25 AM Patient out of room: 11:25 scoates 11:25 AM Fluoro Time: 22.7 scoates 11:25 AM Radiation Dose 2689 mGy scoates 12:00 PM Balloon inflated @ 6 mckenna for 6 seconds scoates Complications Complication None None Hemodynamics Pressures Site Systolic/A Wave Diastolic/V Wave Mean LV 121 16 18 LV 124 16 20 AO 118 51 92 AO 118 87 102 AO 117 86 101 LV 131 17 21 AO 133 83 106 AO 120 85 102 AO 133 87 109 AO 133 89 111 AO 148 98 125 AO 139 90 114 AO 148 94 119 AO 143 90 114 AO 133 92 112 AO 118 87 101 Post Procedure Information Blood Pressure: 142/82 mmHg Rhythm: NSR Post procedural instructions were given Closure Device Time Device Success/Fail 02/05/2017 11:25:00 AM Angio-Seal VIP Successful Site Checks Time Location Status Staff Sheath In? Note 11:18 AM Rt Groin No bleeding/hematoma Argelia Hernandez RT Pulses Time Site Pre-Procedure Post-Procedure Note 02/05/2017 9:40:00 AM Bilateral DP & PT 1+ 11:15:00 AM Bilateral DP & PT 1+ Updated by Oleg Menard RN on 02/05/2017 11:31:01 AM electronically signed on 02/05/2017 11:31:42 AM with status of Final
--- NOTE | 2017-02-05 11:41 | Invasive Diagnostic Lab Proc ---
Name: Armaan Miller Date of Study: 02/05/2017 Date: 1950 Ht: 72.0in Medical Record#: [id number] Age: 66 Wt: 291.01lb Gender: Male BSA: 2.5 Order #: [id number] BMI: 39.42 Physicians Procedure Physician: William Perez MD Referring MD: Referring MD: Staff Name Position Time In Argelia Hernandez RT Scrub 09:44 AM Oleg Menard RN Pick Up Driver 09:44 AM Aline Cifuentes RN Monitor 09:44 AM Indications Indication Non-Stemi Procedures Performed Procedure L HRT ARTERY/VENTRICLE ANGIO Pre-Procedure Checklist Informed consent is complete signed and on chart. H&P is on chart. ID band is on and ID verified with patient. Patient NPO for procedure The procedure was described for the patient and questions were answered. Blood Pressure: 141/93 ECG is on chart. Rhythm: NSR Plan of Care Patient will tolerate the procedure without complications. Adequate level of comfort will be maintained. Hemodynamics will remain stable Patient will recover from procedure without complications. Respiratory function will be maintained. Cardiac rhythm will remain stable. Patient temperature will be maintained. Patient and/or family have verbalized understanding of the procedure. Patient Education Chief Complaint/Reason for Test: Cardiac Cath Developmental Category: Geriatric (65+ years) Developmentally Appropriate for Age: Yes Learning Barriers: None Education Needs: Procedure Education Method: Verbal Information Taught: Cardiac Cath Educational Evaluation: Able to repeat information Intravenous Access Time IV Size Location DC'd Fluid/Drip Rate Units RN 09:40 AM 18g 1 /" Patent On Arrival Lt Antecubital 0.9NaCl 25 ml/hr Oleg Menard RN Allergies Penicillins PCN Vital Signs Time BP (mmHg) HR (bpm) O2 Sat. RR (bpm) LOC 09:56 AM / % 5 = Fully awake and oriented or at pre-proc level 10:32 AM 150 / 99 76 97 % 26 10:37 AM 153 / 98 74 97 % 16 10:42 AM 152 / 99 75 96 % 15 10:47 AM 147 / 97 80 97 % 22 10:52 AM 156 / 97 78 96 % 15 10:57 AM 154 / 96 73 95 % 21 11:02 AM 155 / 100 77 96 % 19 11:07 AM 149 / 95 73 96 % 18 11:12 AM 142 / 82 83 96 % 14 09:52 AM 146 / 95 100 98 % 11 09:57 AM 140 / 89 82 96 % 15 10:02 AM 133 / 90 79 96 % 18 10:07 AM 137 / 93 80 96 % 15 10:12 AM 142 / 81 76 96 % 12 10:17 AM 145 / 91 76 96 % 17 10:22 AM 133 / 94 74 97 % 20 10:27 AM 142 / 98 71 97 % 15 09:56 AM / % 4 = Oriented but drowsy Procedural Medications Time Medication Dose Units Method Given By 09:55 AM Oxygen 2 L/min nasal cannula Oleg Menard RN 09:55 AM Versed 1 mg Intravenous Oleg Menard RN 09:55 AM Fentanyl 50 mcg Intravenous Oleg Menard RN 10:00 AM Lidocaine 2% 10 ml Subcutaneous William Perez MD 10:09 AM Aggrastat Bolus: 66.5 ml Intravenous Oleg Menard RN 10:10 AM Aggrastat 12.5mg/250ml 24 ml/hr Intravenous Oleg Menard RN 10:15 AM Heparin 5000 units Intravenous Oleg Menard RN 11:09 AM Nitroglycerin 100 mcg Intracoronary Tey Perez MD 11:09 AM Nitroglycerin 200 mcg Intracoronary Tye Perez MD 11:17 AM Brilinta 180 mg Orally Oleg Menard RN ASA Classification: CLASS II- Mild systemic disease (i.e. well-controlled diabetes, hypertension, asthma, cigarette smoking) Luna Score Preprocedure Postprocedure Activity 2- Moves 4 extremities sustained head lift Activity Circulation 2- SBP +/= 20 points of pre-anesthetic level Circulation Consciousness 2- Awake and alert oriented x 3 Consciousness O2 Saturation 2- Able to maintain O2 satruation of 92% on room air O2 Saturation Respiratory 2- Able to deep breathe and cough well Respiratory Total Score 10 Total Score Contrast Agent: Isovue Diagnostic Contrast: 407 ml Total Contrast: 407 ml Fluoro Dose: 2689 mGy Activated Clotting Time Time Seconds to Clot 10:13 AM 113 10:54 AM 283 Procedure Log Time Note Enter By 09:40 AM Pt arrived to record label internship 2 at 09:40 liliana 09:40 AM Wilfredo paged/called 09:40. liliana 09:40 AM Wilfredo responded and notified patient is ready 09:40 [facility] 09:44 AM Argelia Hernandez Position: Scrub Time in: :44 [facility] 09:44 AM Oleg Menard RN Position: Pick Up Driver Time in: :44 [facility] 09:44 AM Aline Cifuentes RN Position: Monitor Time in: :44 [facility] 09:44 AM Patient charges- Angio tray pack, Navilyst 3mm J, Pulse Oximetry and ACIST tubing and transducer [facility] 09:44 AM Case Delayed no, inpatient [facility] 09:50 AM Physician arrived 09:50 [facility] 09:50 AM Meet and greet completed [facility] 09:50 AM Sign in performed according to hospital policy. [facility] 09:50 AM Procedure start 09:50 [facility] 09:51 AM CathStat 09:51 AM Vitals capture started with the following parameters, Patient=Adult, Interval=5 min, Initial Nykkbtyy=103 mmHg, Deflation Rate=5 mmHg, Cuff placed on Left Arm 09:52 AM ET=493 bpm, RFQC=488/95 mmhg, SpO2=98.0 %, Resp=11 B/min 09:55 AM Hair removed from procedure site in procedure lab using clippers. Bilateral groin prepped with Chloraprep by Aline Cifuentes RN, safety strap applied then patient was draped. Skin intact. [facility] 09:55 AM Time: 09:55 Oxygen on at 2 L/min per nasal cannula [facility] 09:[facility] AM Time: 09:55 Versed 1 mg Intravenous Given by [facility]leg [facility] 09:55 AM Time: 09:55 Fentanyl 50 mcg Intravenous Given by [facility]leg [facility] 09:56 AM Time: 09:56 Patient comfortable and pain free: Yes [facility] :56 AM Time: 09:56LOC: 5 = Fully awake and oriented or at pre-proc level [facility] 09:56 AM Clinical Presentation: Non-STEMI [facility] 09:57 AM HR=82 bpm, LCJU=542/89 mmhg, SpO2=96.0 %, Resp=15 B/min, Comment=nsr 09:58 AM Pressure channel 1 zeroed. 10:00 AM Time out performed according to hospital policy scoates 10:00 AM Time: 10:00 10 ml Lidocaine 2% to right groin Subcutaneous Given by William Perez MD scoates 10:01 AM Micro-Introducer Kit utilized for sheath placement scoates 10:01 AM Access obtained by percutaneous puncture. 6Fr 10cm Terumo C[place]ron sheath placed in right Femoral artery. [id number] scoates 10:01 AM 3mls hand injected into the femoral artery scoates 10:02 AM HR=79 bpm, UMBL=020/90 mmhg, SpO2=96.0 %, Resp=18 B/min 10:02 AM 5Fr FR 4 catheter inserted over the wire DNC scoates 10:03 AM jwire removed scoates 10:04 AM Recorded Pressure: LV, HR=77, Condition=Condition 1 (Left Ventricle) LV 121/16/18 10:04 AM Recorded Pressure: LV, Ao, HR=75, Condition=Condition 1 (Left Ventricle) LV 124/16/20, (Aorta) Ao 118/51/92 10:04 AM Recorded Pressure: Ao, HR=74, Condition=Condition 1 (Aorta) Ao 118/87/102 10:05 AM RCA angiography performed in multiple views. scoates 10:05 AM Catheter removed scoates 10:06 AM 5Fr FL 4 catheter inserted over the wire DN scoates 10:06 AM Lesion found in Mid RCA. Pre Stenosis: 50 Pre ELO Flow: scoates 10:07 AM LCA angiography performed in multiple views. scoates 10:07 AM HR=80 bpm, XKYZ=200/93 mmhg, SpO2=96.0 %, Resp=15 B/min, Comment=sr 10:07 AM Recorded Pressure: Ao, HR=79, Condition=Condition 1 (Aorta) Ao 117/86/101 10:07 AM PCI Status Urgent scoates 10:08 AM Guide catheter removed intact. scoates 10:09 AM Lesion found in Mid LAD. Pre Stenosis: 90 Pre ELO Flow: 3: Partial Flow/Perfusion (> 1 but < 3) scoates 10:09 AM Lesion found in Distal Circumflex. Pre Stenosis: 80 Pre ELO Flow: 3: Complete and Brisk Flow/Perfusion scoates 10:10 AM Time: 10:09 Aggrastat Bolus: 66.5 ml Intravenous Given by Oleg Menard RN Sesay pump scoates 10:10 AM 5Fr Pigtail catheter inserted over the wire DNC scoates 10:11 AM Time: 10:10 Aggrastat 12.5mg/250ml 24 ml/hr Intravenous Given by Oleg Menard RN Sesay pump scoates 10:11 AM Catheter selectively placed in left ventricle scoates 10:11 AM Recorded Pressure: LV, HR=78, Condition=Condition 1 (Left Ventricle) LV 131/17/21 10:12 AM HR=76 bpm, KVJS=613/81 mmhg, SpO2=96.0 %, Resp=12 B/min, Comment=sr 10:12 AM Bolus angiogram of left Ventricle complete: 10 ml/sec for a total of 20 mls scoates 10:13 AM Bolus angiogram of left Ventricle complete: 1020 ml/sec for a total of mls scoates 10:14 AM At 10:13 the ACT was 113 seconds. scoates 10:14 AM Coronary Dominance: right scoates 10:14 AM Catheter removed scoates 10:14 AM 6Fr XB3.5 Sinton Bright-Tip guide catheter was used to cannulate the PCI vessel successfully. reused? No scoates 10:15 AM .014 Samurai 190cm guide wire across target lesion- unsuccessful. reused? No scoates 10:15 AM Inflation device was opened. scoates 10:15 AM Recorded Pressure: Ao, HR=75, Condition=Condition 1 (Aorta) Ao 133/83/106 10:16 AM Time: 10:15 Heparin 5000 units Intravenous Given by Oleg Menard RN scoates 10:17 AM HR=76 bpm, RHQJ=410/91 mmhg, SpO2=96.0 %, Resp=17 B/min, Comment=sr 10:19 AM Recorded Pressure: Ao, HR=80, Condition=Condition 1 (Aorta) Ao 120/85/102 10:20 AM Lesion found in 1st Marginal. Pre Stenosis: 65 Pre ELO Flow: 3: Complete and Brisk Flow/Perfusion scoates 10:20 AM Lesion found in Distal LAD. Pre Stenosis: 70 Pre ELO Flow: 3: Complete and Brisk Flow/Perfusion scoates 10:20 AM guide wire removed, intact, to be reshaped scoates 10:21 AM wire reinserted to circ scoates 10:22 AM HR=74 bpm, FHNC=465/94 mmhg, SpO2=97.0 %, Resp=20 B/min, Comment=sr 10:23 AM Guide wire removed intact. scoates 10:24 AM .014 Whisper 190cm guide wire across target lesion- successful. reused? No scoates 10:26 AM wire inserted into the LAD scoates 10:27 AM HR=71 bpm, EAHS=572/98 mmhg, SpO2=97.0 %, Resp=15 B/min, Comment=sr 10:27 AM 2.0 mm x 8 mm Emerge Monorail balloon across target lesion- successful. reused? No scoates 10:27 AM Recorded Pressure: Ao, HR=78, Condition=Condition 1 (Aorta) Ao 133/87/109 10:28 AM Balloon inflated @ 6 mckenna for 10 seconds scoates 10:29 AM Balloon inflated @ 8 mckenna for 8 seconds scoates 10:29 AM Balloon catheter removed intact. scoates 10:31 AM 3.5mm x 16mm Synergy drug-eluting stent across target lesion- successful Lot #[id number] scoates 10:32 AM HR=76 bpm, AENI=837/99 mmhg, SpO2=97.0 %, Resp=26 B/min, Comment=sr 10:32 AM Stent deployed @ 9 mckenna for 8 seconds scoates 10:33 AM Lesion found in 1st Diagonal. Pre Stenosis: 60 Pre ELO Flow: scoates 10:34 AM Stent deployed @ 12 mckenna for 8 seconds scoates 10:34 AM Stent delivery system removed intact. scoates 10:34 AM Recorded Pressure: Ao, HR=77, Condition=Condition 1 (Aorta) Ao 133/89/111 10:36 AM 2.25mm x 12mm Synergy drug-eluting stent across target lesion- successful Lot #[id number] scoates 10:37 AM HR=74 bpm, BKVV=327/98 mmhg, SpO2=97.0 %, Resp=16 B/min, Comment=sr 10:38 AM Stent deployed @ 11 mckenna for 10 seconds scoates 10:39 AM Stent balloon reinflated @ 16 mckenna for 16 seconds scoates 10:40 AM Stent balloon reinflated @ 10 mckenna for 12 seconds scoates 10:40 AM Stent balloon reinflated @ 14 mckenna for 20 seconds scoates 10:42 AM Recorded Pressure: Ao, HR=75, Condition=Condition 1 (Aorta) Ao 148/98/125 10:42 AM HR=75 bpm, IQSH=205/99 mmhg, SpO2=96.0 %, Resp=15 B/min, Comment=sr 10:42 AM Stent delivery system removed intact. scoates 10:43 AM 2.0 mm x 8mm NC Emerge balloon across target lesion- successful. reused? No scoates 10:44 AM Balloon inflated @ 16 mckenna for 14 seconds scoates 10:44 AM Balloon inflated @ 14 mckenna for 5 seconds scoates 10:45 AM Stent deployed @ 16 mckenna for 6 seconds scoates 10:45 AM Balloon inflated @ 16 mckenna for 6 seconds scoates 10:45 AM Balloon inflated @ 16 mckenna for 6 seconds scoates 10:47 AM HR=80 bpm, WXVS=534/97 mmhg, SpO2=97.0 %, Resp=22 B/min, Comment=sr 10:48 AM Balloon catheter removed intact. scoates 10:48 AM 3.5 mm x 12mm NC Emerge balloon across target lesion- successful. reused? No scoates 10:48 AM Balloon inflated @ 18 mckenna for 6 seconds scoates 10:48 AM Balloon inflated @ 18 mckenna for 5 seconds scoates 10:49 AM Recorded Pressure: Ao, HR=81, Condition=Condition 1 (Aorta) Ao 139/90/114 10:49 AM Balloon catheter removed intact. scoates 10:50 AM ACT drawn scoates 10:50 AM Recorded ECG: HR=78 Condition=Condition 1 10:52 AM HR=78 bpm, EPJD=824/97 mmhg, SpO2=96.0 %, Resp=15 B/min, Comment=sr 10:52 AM Recorded Pressure: Ao, HR=78, Condition=Condition 1 (Aorta) Ao 148/94/119 10:54 AM At 10:54 the ACT was 283 seconds. scoates 10:55 AM whisper wire repositioned down the circ scoates 10:55 AM 2.0x8 balloon reinserted scoates 10:57 AM HR=73 bpm, OJGB=764/96 mmhg, SpO2=95.0 %, Resp=21 B/min, Comment=sr 11:00 AM Balloon inflated @ 6 mckenna for 9 seconds scoates 11:01 AM Mid/Distal Left Anterior Descending Coronary Artery and diagonal branches with 90% stenosis. If graft is supplying this area, 0 % stenosis scoates 11:01 AM Circumflex, Obtuse Marginal, Left Posterior Descending, and Left Posterolateral Coronary Arteries with 80 % stenosis. If graft is supplying this area, 0 % stenosis scoates 11:01 AM Right Coronary, Right Posterior Descending Arteries with Right Posterolateral and Acute Marginal branches with 50 % stenosis. If graft is supplying this area, 0 % stenosis scoates 11:02 AM Balloon inflated @ 6 mckenna for 9 seconds scoates 11:02 AM Balloon inflated @ 10 mckenna for 10 seconds scoates 11:02 AM HR=77 bpm, BHHX=005/100 mmhg, SpO2=96.0 %, Resp=19 B/min, Comment=sr 11:02 AM Balloon inflated @ 10 mckenna for 10 seconds scoates 11:03 AM Balloon catheter removed intact. scoates 11:03 AM Recorded Pressure: Ao, HR=72, Condition=Condition 1 (Aorta) Ao 143/90/114 11:05 AM 2.25mm x 8mm Promus Premier Rx drug-eluting stent across target lesion- successful Lot #[id number] scoates 11:06 AM Stent deployed @ 11 mckenna for 12 seconds scoates 11:06 AM Recorded Pressure: Ao, HR=74, Condition=Condition 1 (Aorta) Ao 133/92/112 11:07 AM Stent balloon reinflated @ 16 mckenna for 6 seconds scoates 11:07 AM HR=73 bpm, NMIM=518/95 mmhg, SpO2=96.0 %, Resp=18 B/min, Comment=sr 11:08 AM Stent delivery system removed intact. scoates 11:09 AM Time: 11:09 Nitroglycerin 100 mcg Intracoronary Given by Tye Perez MD scoates 11:10 AM Time: 11:09 Nitroglycerin 200 mcg Intracoronary Given by Tye Perez MD scoates 11:11 AM Recorded Pressure: Ao, HR=84, Condition=Condition 1 (Aorta) Ao 118/87/101 11:12 AM HR=83 bpm, RPND=298/82 mmhg, SpO2=96.0 %, Resp=14 B/min, Comment=sr 11:13 AM Guide wire removed intact. scoates 11:13 AM Guide catheter removed intact. scoates 11:13 AM Procedure completed at 11:13 scoates 11:14 AM Sign out completed: Radiation Dose 2689 mGy Fluoro Time: 22.7 Isovue 370 - 200ml contrast 407 ml given by William Perez MD. Complications: NoneCardiac Rehab Consult needed: YesConfirmed administered medications: Yes scoates 11:14 AM Arterial sheath pulled, Angio-seal closure device used and was Successful [id number] S/N. scoates 11:15 AM Post ECG NSR scoates 11:15 AM Post Blood Pressure 142/82 scoates 11:15 AM 11:15 Post Pulses Bilateral DP & PT 1+ scoates 11:16 AM Information taught PCI, Cardiac Cath, and Angioseal scoates 11:16 AM Education needs Procedure, Plan of Care, and Responsibilities of Patient in Care scoates 11:16 AM Learning barriers :None scoates 11:17 AM Time: 09:56LOC: 4 = Oriented but drowsy scoates 11:17 AM Time: 09:56 Patient comfortable and pain free: Yes scoates 11:17 AM Time: 11:17 Brilinta 180 mg Orally Given by Oleg Menard RN scoates 11:18 AM Education Methods Verbal scoates 11:18 AM Education evaluation Able to repeat information scoates 11:18 AM Site status No bleeding/hematoma - Rt Groin as reported by Argelia Hernandez RT at 11:18 scoates 11:18 AM Opsite applied scoates 11:18 AM Plavix, Effient or Brilinta given Yes scoates 11:18 AM Delay to floor No scoates 11:18 AM Family placed in consult room. scoates 11:18 AM Complications: None scoates 11:24 AM Report given to Annika PETER Pt taken to 2N Room #9. 11:24 scoates 11:24 AM Isovue 370 - 200ml contrast 407 ml given by William Perez MD. scoates 11:24 AM Isovue 370 - 200ml,2 Bottle(s) used. scoates 11:25 AM Patient out of room: 11:25 scoates 11:25 AM Fluoro Time: 22.7 scoates 11:25 AM Radiation Dose 2689 mGy scoates 12:00 PM Balloon inflated @ 6 mckenna for 6 seconds scoates Complications Complication None None Hemodynamics Pressures Site Systolic/A Wave Diastolic/V Wave Mean LV 121 16 18 LV 124 16 20 AO 118 51 92 AO 118 87 102 AO 117 86 101 LV 131 17 21 AO 133 83 106 AO 120 85 102 AO 133 87 109 AO 133 89 111 AO 148 98 125 AO 139 90 114 AO 148 94 119 AO 143 90 114 AO 133 92 112 AO 118 87 101 Post Procedure Information Blood Pressure: 142/82 mmHg Rhythm: NSR Post procedural instructions were given Closure Device Time Device Success/Fail 02/05/2017 11:25:00 AM Angio-Seal VIP Successful Site Checks Time Location Status Staff Sheath In? Note 11:18 AM Rt Groin No bleeding/hematoma Argelia Hernandez RT Pulses Time Site Pre-Procedure Post-Procedure Note 02/05/2017 9:40:00 AM Bilateral DP & PT 1+ 11:15:00 AM Bilateral DP & PT 1+ Updated by Oleg Menard RN on 02/05/2017 11:33:37 AM electronically signed on 02/05/2017 11:34:03 AM with status of Final
--- NOTE | 2017-02-05 16:33 | Electrocardiograph Report ---
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
--- NOTE | 2017-02-05 16:57 | Internal Med Progress Note ---
Date of Encounter: 02/05/17 Time of Encounter: 10:00 - Assessment and plan (1) Hyperlipidemia Current Visit: Yes Status: Acute Assessment and plan: Continue Lipitor. Qualifiers: Hyperlipidemia type: unspecified Qualified Code(s): E78.5 - Hyperlipidemia , unspecified (2) NSTEMI (non-ST elevated myocardial infarction) Current Visit: Yes Status: Acute Assessment and plan: Troponin went up to 21. The patient's chest pain has resolved. There is no evidence of ST elevation on multiple EKGs. Continue with nitro drip, continue with heparin drip per ACS protocol. Nothing by mouth. Appreciated cardiology recommendations. She is at very high risk for morbidity, mortality and complications due to IV heparin and IV nitroglycerin which require close monitoring of blood coagulation parameters and blood pressure. (3) Hypertension Current Visit: Yes Status: Acute Assessment and plan: Continue lisinopril. Qualifiers: Hypertension type: essential hypertension Qualified Code(s): I10 - Essential (primary) hypertension (4) DVT prophylaxis Current Visit: Yes Status: Acute Assessment and plan: On heparin drip. - Subjective Interval history: Patient presents to the hospital yesterday with upper back pain radiating to both arms, rated as severe, 9/10, aching, occurring at rest. Pain improved with administration of IV nitroglycerin, currently the patient is chest pain- free. He denies associated shortness of breath and lightheadedness and diaphoresis. - Constitutional Vitals: Temp Pulse Resp BP Pulse Ox 98.6 F 75 16 114/83 97 02/05/17 11:46 02/05/17 15:04 02/05/17 14:00 02/05/17 15:04 02/05/17 14:00 General appearance: Present: A&O X 3, pleasant, no acute distress, answers questions appropriately - Eye Eye exam: Present: PERRL, conjuntiva pink, sclera anicteric Pupils: Present: PERRL - Respiratory Respiratory exam: Present: CTAB. Absent: accessory muscle use, rales, rhonchi, wheezes - Cardiovascular Cardiovascular exam: Present: RRR, +S1, +S2. Absent: diastolic murmur, gallop, rubs, systolic murmur - GI/Abdominal GI/Abdominal exam: Present: normal bowel sounds, soft, no peritoneal signs. Absent: distended, tenderness - Extremities Exam Extremities exam: Present: warm, radial pulses palpable and symmetrical. Absent : calf tenderness, cyanotic, pedal edema - Neurological Exam Neurological exam: Present: CN II-XII intact, oriented X3, no focal deficits. Absent: pronater drift, facial droop, speech deficit - Skin Skin exam: Present: dry, intact Internal Medicine: Result - Labs CBC & Chem 7: 02/05/17 04:45 02/05/17 04:45 Labs: Short CBC 02/05/17 Range/Units 04:45 WBC 10.5 (4.3-11.1) K/mcL Hgb 14.1 (12.9-16.9) g/dL Hct 40.8 (37.5-50.1) % Plt Count 228 (140-400) K/mcL Neutrophils # 6.8 (1.6-8.9) K/mcL BMP 02/05/17 04:45 Sodium 137 Potassium 4.1 Chloride 102 Carbon Dioxide 27 BUN 9 Creatinine 0.83 Glucose 132 H Calcium 9.2 Cardiac Enzymes 02/04/17 02/05/17 Range/Units 22:38 04:45 Troponin I 5.64 H* 21.76 H* (0-0.03) ng/mL Liver Function 02/05/17 Range/Units 04:45 Total Bilirubin 0.7 (0.2-1.2) mg/dL AST 127 H (5-34) Units/L ALT 57 H (0-55) Units/L Alkaline Phosphatase 74 (38-126) Units/L Albumin 3.7 (3.5-5.0) g/dL - ABG Interpretation ABG results: PT/INR, D-dimer PT 11.8 Seconds (9.4-12.1) 02/05/17 04:45 - EKG Interpretation EKG Interpreted by Myself: Yes EKG shows normal: sinus rhythm, axis, intervals, QRS complexes, ST-T waves Rate: normal Consult Discharge Plan - Plan Referrals: Alistair Perez MD [Primary Care Provider] - 02/12/17 1:00 pm William Perez [Partnered Physician] - (office will call patient at home with an appointment)
[2017-02-05] MEDS: Heparin 25,000 UNIT/500 ML D5W 25,000 UNIT/500 ML MLS IVC SCH (18:39)
--- NOTE | 2017-02-05 18:41 | Electrocardiograph Report ---
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
--- NOTE | 2017-02-05 18:46 | Electrocardiograph Report ---
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
--- NOTE | 2017-02-05 18:49 | Electrocardiograph Report ---
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
[2017-02-05] MEDS: *HR* Ticagrelor 90 MG TABLET PO SCH (20:04)
[2017-02-06 03:25] LABS: Basophils # 0.1 K/mcL (0.0-0.2); Basophils % 0.5 %; Eosinophils # 0.2 K/mcL (0.0-0.6); Eosinophils % 1.5 %; Hematocrit 39.5 % (37.5-50.1); Hemoglobin 13.5 g/dL (12.9-16.9); Immature Granulocytes % 0.5 % (0-4); Lymphocytes # 2.4 K/mcL (0.6-4.6); Lymphocytes % 23.8 %; Mean Corpuscular HGB Conc 34.2 g/dL (31.6-35.5); Mean Corpuscular Hemoglobin 33.3 pg (28.0-33.3); Mean Corpuscular Volume 97.5 fL (83.0-100.0); Monocytes # 0.8 K/mcL (0.0-1.3); Monocytes % 7.9 %; Neutrophils # 6.5 K/mcL (1.6-8.9); Platelet Count 201 K/mcL (140-400); Red Blood Count 4.05 M/mcL (4.19-5.50); Red Cell Distribution Width 13.2 % (11.5-14.5); Segmented Neutrophils % 65.8 %
[2017-02-06 03:37] LABS: BUN/Creatinine Ratio 10 (6-26); Blood Urea Nitrogen 9 mg/dL (8-26); Calcium 9.2 mg/dL (8.6-10.8); Carbon Dioxide 25 mEq/L (19-29); Chloride 103 mEq/L (98-109); Glucose 117 mg/dL (70-99); Osmolality,Calculated 284 (280-300); Potassium 4.2 mEq/L (3.5-4.5); Sodium 137 mEq/L (136-145); eGFR For African Americans > 60 (> 60); eGFR For Non-African Americans > 60 (> 60)
[2017-02-06 08:12] VITALS: BP 116/82
--- NOTE | 2017-02-06 08:27 | Cardiology Progress Note ---
Date of Encounter: 02/06/17 Time of Encounter: 08:25 Assessment and Plan (1) NSTEMI (non-ST elevated myocardial infarction) Current Visit: Yes Status: Acute Per Cardiology: Troponin elevated, 0.09, 1.35, 5.64, 21.76. Status post catheterization which showed mid LAD 90%, distal LAD 70%, diagonal one 60%, distal circumflex 80%, OM1 65%, and mid RCA 50% lesions. Patient underwent PCI/JUHI of severely tortuous circumflex and PCI/JUHI of the mid to mid-distal LAD. Remaining RCA lesion to be monitored in outpatient setting. On aspirin, statin, beta fredo, and Brilinta. Will DC IV heparin drip. Has cardiac rehabilitation consult. Brilinta nursing assistants teacher card provided. Echo results pending. Cardiology will sign off , reconsult as needed, follow-up scheduled. All questions answered. Patient aware not to discontinue aspirin or Brilinta for at least one year unless directed by cardiology. Recommend discharge with nitroglycerin when necessary pills. Education provided regarding right groin site and post cath instructions. He verbalized understanding and agreed with plan. Discussion w patient/family: The assessment and plan as outlined above was discussed with the patient who expressed understanding and agreement. All questions were answered. Thank you for involving us in the care of your patient. Please call with any questions. Subjective Principal diagnosis: NSTEMI Interval history: Patient denies any concerns or complaints overnight. Denies any chest pain, shortness of breath, palpitations. Denies any concerns from his right groin site. "I feel like a new man". Objective Vital Signs, Last 4 Hours Temp Pulse Resp BP Pulse Ox 02/06/17 08:07 98.7 F 85 16 116/82 93 General: Conversant, No Apparent Distress HEENT: Atraumatic, Normocephaly, Mucus Membranes Moist Neck: No JVD, Normal carotid pulses Cardiac: Reg Rate and Rhythm, Normal S1 and S2, No Murmur Lungs: Normal Breath Sounds, No Wheeze, Rales, Rhonchi Neuro: Alert and responsive, No focal deficits noted Abdomen: Soft, Non-Tender Skin: No rashes noted on visualized skin, Other (Right groin site dry and intact , no hematoma, mild ecchymosis, no bleeding, right posterior tibial and cells. His pulses 2+ palpable) Musculoskeletal: No Chest Wall Tenderness Extremities: No Clubbing, No Cyanosis, No Edema, Normal Pulses Results 02/06/17 03:01 02/06/17 03:01 Lab Results Laboratory Tests 02/04/17 02/04/17 02/04/17 13:18 17:00 22:38 Troponin I 0.09 H* 1.35 H* 5.64 H* B-Natriuretic Peptide LDL Cholesterol, Calc 02/05/17 02/05/17 02/05/17 04:45 04:45 04:45 Troponin I 21.76 H* B-Natriuretic Peptide 189 H LDL Cholesterol, Calc 67 ITS Impressions Chest X-Ray 02/04/17 12:01 IMPRESSION: Low lung volumes resulting in bibasilar atelectasis D/ / Checo Ayala MD / Checo Ayala MD Interpreting Provider: Checo Ayala MD Chest CTA 02/04/17 14:19 IMPRESSION: No acute process. No acute pulmonary emboli, aortic dissection or aneurysm is noted. D/ / Yamil Arzate MD / Yamil Arzate MD Interpreting Provider: Yamil Arzate MD Abdomen/Pelvis CTA 02/04/17 14:45 IMPRESSION: No acute process. No acute pulmonary emboli, aortic dissection or aneurysm is noted. D/ / Yamil Arzate MD / Yamil Arzate MD Interpreting Provider: Yamil Arzate MD Active Medications Acetaminophen (Tylenol) 650 mg PO Q6HR PRN PRN Reason: Mild Pain Stop: 08/07/17 11:37 Hydrocodone Bitart/Acetaminophen ([place] 5-325 Mg) 1 tab PO Q4HR PRN PRN Reason: Moderate Pain Stop: 08/07/17 11:37 Aspirin (Aspirin) 81 mg PO DAILY ROSHNI Stop: 08/08/17 09:01 Atorvastatin Calcium (Lipitor) 20 mg PO QPM [facility] Stop: 08/06/17 18:01 Last Admin: 02/05/17 18:57 Dose: 20 mg Heparin Sodium (Porcine) (Heparin) 4,000 unit IVP Q6HR PRN PRN Reason: SEE COMMENTS Stop: 08/06/17 18:25 Heparin Sodium (Porcine) (Heparin) 2,000 unit IVP Q6H PRN PRN Reason: SEE COMMENTS Stop: 08/06/17 18:25 Last Admin: 02/05/17 03:25 Dose: 2,000 unit Heparin Sodium/Dextrose (Heparin 25,000 Unit/500 Ml D5w) 25,000 unit in 500 mls @ 19.731 mls/hr IVC .Q24H ROSHNI; 7.5 UNIT/KG/HR PRN Reason: Protocol Stop: 08/06/17 18:31 Last Admin: 02/05/17 18:39 Dose: Not Given Metoprolol Tartrate (Lopressor) 12.5 mg PO BID [facility] Stop: 08/06/17 21:01 Last Admin: 02/05/17 20:04 Dose: 12.5 mg Morphine Sulfate (Morphine Sulfate) 2 mg IVP Q2H PRN PRN Reason: Severe Pain Stop: 08/07/17 11:37 Naloxone HCl (Narcan) 0.4 mg IVP Q2MIN PRN PRN Reason: Opioid Reversal Stop: 08/06/17 16:16 Ticagrelor (Brilinta) 90 mg PO BID [facility] Stop: 08/07/17 21:01 Last Admin: 02/05/17 20:04 Dose: 90 mg - Imaging and Cardiology Chest Xray: report reviewed Echo: pending Cardiac cath: report reviewed - EKG Interpretation EKG results cardiology: other (Telemetry reviewed with average heart rate the past 12 hours 73, currently sinus rhythm in the 80s, no evidence noted) Consult Discharge Plan - Plan Referrals: Alistair Perez MD [Primary Care Provider] - 02/12/17 1:00 pm William Perez [Partnered Physician] - (office will call patient at home with an appointment)
[2017-02-06] MEDS ORDERED: Aspirin 81 MG TAB.CHEW PO SCH (09:00)
[2017-02-06] MEDS: *HR* Ticagrelor 90 MG TABLET PO SCH (09:05)
--- NOTE | 2017-02-06 11:02 | Discharge Summary ---
Date of Encounter: 02/06/17 Time of Encounter: 11:00 - Discharge Diagnosis (1) Hyperlipidemia Priority: Secondary Status: Acute Qualifiers: Hyperlipidemia type: unspecified Qualified Code(s): E78.5 - Hyperlipidemia , unspecified (2) NSTEMI (non-ST elevated myocardial infarction) Priority: Primary Status: Acute (3) Hypertension Priority: Secondary Status: Acute Qualifiers: Hypertension type: essential hypertension Qualified Code(s): I10 - Essential (primary) hypertension (4) DVT prophylaxis Priority: Secondary Status: Acute - Discharge Medications Prescriptions: Metoprolol [Lopressor] 12.5 mg PO BID #60 tablet Ticagrelor [Brilinta] 90 mg PO BID #60 tablet Home Medications: Aspirin [Lo-Dose Aspirin EC] 81 mg PO DAILY 02/04/17 [History] Atorvastatin Calcium [Lipitor] 20 mg PO QPM 02/04/17 [History] Cyanocobalamin (B-12) [Vitamin B12] 1,000 mcg PO DAILY 02/04/17 [History] Lisinopril [Zestril] 10 mg PO DAILY 02/04/17 [History] Multivit-Min/FA/Lycopen/Lutein [A Thru Z Select Multivit Tab] 1 tab PO DAILY 12/13 [History] Metoprolol [Lopressor] 12.5 mg PO BID #60 tablet 02/06/17 [Rx] Ticagrelor [Brilinta] 90 mg PO BID #60 tablet 02/06/17 [Rx] Allergies/Adverse Reactions: 3 Allergy/AdvReac Type Severity Reaction Status Date / Time Penicillins Allergy Hives Verified 02/04/17 11:48 Procedures/tests Complete & Pending: Procedures Performed prior 72 hours Category Date Time Status Left Heart Cath [CL Cardiac Catheterization] [CL] [employer] 02/05/17 06:11 Completed Routine ECG 12 lead ECG [ECG] Routine Y 02/04/17 19:53 Completed ECG 12 lead ECG [ECG] Routine Y 02/04/17 23:46 Completed ECG 12 lead ECG [ECG] Routine Y 02/05/17 06:39 Completed ECG 12 lead ECG [ECG] Routine Y 02/05/17 11:36 Ordered EV echocardiogram Routine Y 02/05/17 09:03 Completed Date of admission: 02/04/17 21:34 Primary care physician: Alistair Perez MD Consults: 02/05/17 09:03 Consult to Cardiac Rehabilitation-Phase1 [CONS] Routine Comment: Reason for Consult: NSTEMI Call Completed: Yes - Patient Status Disposition: Home, Self-Care Condition: Fair Functional capacity at discharge: independent ambulation Overall status at discharge: patient is back to baseline - Discharge Instructions Instructions: Metoprolol (By mouth), Ticagrelor (By mouth), Myocardial Infarction (DC) Follow Up With: Alistair Perez MD [Primary Care Provider] - 02/12/17 1:00 pm William Perez [Partnered Physician] - (office will call patient at home with an appointment) Additional Instructions: RISK FACTORS: STOP SMOKING: If you smoke, STOP. Smoking or tobacco use significantly increases your risk of heart disease because nicotine causes the arteries to narrow or constrict. It also causes fats to stick to the artery. Your chances of having a heart attack are greatly increased if you continue to smoke. For more information, call the education line for smoking cessation 2-434-YRLNHMM EAT A LOW FAT/CHOLESTEROL/SODIUM DIET: This diet may help reduce your chances of having a heart attack. LIFTING: Avoid lifting anything more than 10 pounds for 5-7 days Prior to straining, laughing, sneezing and/or coughing, apply manual pressure directly over insertion site. ACTIVITY: You may walk or climb stairs as tolerated You can resume sexual activity as tolerated In general, you are encouraged to engage in a minimum of 30 minutes or more of moderate intensity physical activity, such as brisk walking, daily or at least 3 -4 times weekly BATHING Do not submerge the site into water (bath tub, hot tub, swimming pool) for 1 week. This can be a source for infection into the blood stream. You may shower after 24 hours SITE CARE: After 24 hours, you may remove the dressing and leave the site open to air. Keep the site clean and dry. Clean gently and pat dry. You can expect bruising and tenderness that gradually resolve within a week or two. Return to work as instructed per your physician Resume driving as instructed per physician Keep all scheduled follow up appointments Resume medications as instructed IMPORTANT: If prescribed a Platelet Aggregation Inhibitor such as, Plavix, Brilinta or Effient: Duration of therapy is minimum one year These medications are often used in combination with Aspirin in prevention of future heart attacks Never discontinue unless consult with your Filter Press Supervisor STROKE (CVA) Risk factors for a stroke are: Age, cigarette smoking, diabetes, excessive alcohol consumption, family history, high blood pressure, overweight, physical inactivity, prior stroke, heart attack, diagnosis of carotid artery stenosis or other artery disease. Warning signs: Sudden numbness or weakness of the face, arm or leg; especially on one side of the body, sudden confusion, trouble speaking or understanding, sudden trouble seeing in one or both eyes, sudden trouble walking, dizziness, loss of balance or coordination, sudden severe headache with no cause. Call 911 or go to the Emergency Room. CONGESTIVE HEART FAILURE: If you have been diagnosed with Congestive Heart Failure (CHF) and your symptoms return, make an appointment with your physician Weigh yourself daily. Notify your physician if you have a weight gain of two or more pounds in one day or five or more pounds in one week. If you experience any difficulty breathing, please call 911 BLEEDING: Although the risk of bleeding is minimal, it can happen. If you have any bleeding from the site, apply firm pressure above the puncture site for 10-15 minutes. If the bleeding does not stop, continue manual pressure and call 911 Contact your physician if: You develop a fever greater than 101 degrees Fahrenheit Your site becomes reddened or has any drainage You have an increase in pain or burning at the site or if a large knot forms at the site. If you experience chest pain, shortness of breath, dizziness, or extreme tiredness, stop the activity and rest. Please notify your physicians office if you experience any of these symptoms and they are not relieved by rest please call 911! - Diet and Activity Activity: increase activity as tolerated Diet: low fat, low cholesterol, low salt diet Hospital course: Mr. Miller is a 66 year old male with history of hypertension who presented to the hospital for evaluation of back pain radiating to both arms, sudden onset. He was found to have EKG changes and his troponin level rapidly spiked to greater than 20. He was diagnosed with non-ST elevation [place] and admitted to the medical service he received treatment with aspirin and IV heparin drip and IV nitroglycerin drip. Cardiology was consulted. He had a cardiac catheterization with 2 stents placed to the mid LAD and circumflex artery. He tolerated the procedure well and currently his chest pain-free and back to baseline. He was started on Brilinta and metoprolol and will continue his home medications. He had an echocardiogram which revealed an ejection fraction of 55 %. He will be discharged home with close follow-up with PCP cardiology. - Time Spent with Patient Total time spent providing and/or coordinating discharge services: Greater than 30 minutes - Constitutional Vitals: Temp Pulse Resp BP Pulse Ox 98.7 F 85 16 116/82 93 02/06/17 08:07 02/06/17 08:07 02/06/17 08:07 02/06/17 08:07 02/06/17 08:07 General appearance: Present: A&O X 3, pleasant, no acute distress, answers questions appropriately - Respiratory Respiratory exam: Present: CTAB. Absent: accessory muscle use, rales, rhonchi, wheezes - Cardiovascular Cardiovascular exam: Present: RRR, +S1, +S2. Absent: diastolic murmur, gallop, rubs, systolic murmur - GI/Abdominal GI/Abdominal exam: Present: normal bowel sounds, soft, no peritoneal signs. Absent: distended, tenderness - Extremities Exam Extremities exam: Present: warm, radial pulses palpable and symmetrical. Absent : calf tenderness, cyanotic, pedal edema - Skin Skin exam: Present: dry, intact
--- NOTE | 2017-02-06 11:53 | Event Note ---
Date of Encounter: 02/06/17 Time of Encounter: 12:00 - Cardiology Event Note ECHO: Impressions: LVEF 55%. Normal LV chamber size, wall thickness and function. mild apical hypokinesis, borderline LVH Normal right ventricular structure and function. Normal left atrial size. Normal right ventricular size and function. Trace mitral regurgitation. Trace tricuspid regurgitation. Left Ventricular Wall Motion: Rest Echo Findings The apex and apical anterior lowe were hypokinetic. All other wall segments showed normal motion. Will sign off.
== END 2017-02-06 12:40 | disposition home or self-care (01) | DRG 247 ==
LOC: EMEROO 11:37 → 3BNU 11:37 → SUATTDRO 21:34 → 2NNU 02-05 10:55
PROVIDERS: ADMIT Internal Medicine; ATTEND Internal Medicine

== ENCOUNTER 2017-07-30 13:03 | Observation (INO) ==
--- NOTE | 2017-07-30 13:35 | Emergency Department Note ---
Disposition Clinical Impression: Concern about cardiovascular disease without diagnosis Left shoulder pain Qualifiers: Chronicity: acute Qualified Code(s): M25.512 - Pain in left shoulder Disposition: Admitted As Inpatient Condition: Fair General Adult HPI - General Chief complaint: ED Extremity Problem,Nontraumatic Stated complaint: Left arm pain Time Seen by Provider: 07/30/17 13:16 Source: patient, family Limitations: no limitations - History of Present Illness Pain Scale: 5 - Related Data Home Medications Medication Instructions Recorded Confirmed Atorvastatin Calcium [Lipitor] 20 mg PO QPM 02/04/17 07/30/17 Metoprolol [Lopressor] 12.5 mg PO BID 03/02/17 07/30/17 Clopidogrel [Plavix] 75 mg PO DAILY 07/30/17 07/30/17 Allergies Allergy/AdvReac Type Severity Reaction Status Date / Time Penicillins Allergy Hives Verified 07/30/17 13:07 Past Medical History - Past Medical History Medical history: Reports: arthritis, coronary artery disease, hyperlipidemia, hypertension, liver disease, myocardial infarction Psychiatric history: Reports: no psych history - Social History Smoking Status: Never smoker Smokeless Tobacco Status: No Alcohol use: Reports: none Drug use: Reports: none Physical Exam - General Limitations: no limitations General appearance: alert, in no apparent distress Course Vital Signs Temperature 98.1 F 07/30/17 13:07 Pulse Rate 64 07/30/17 13:07 Respiratory Rate 15 07/30/17 13:07 Blood Pressure 168/95 07/30/17 13:07 O2 Sat by Pulse Oximetry 95 07/30/17 13:07 Temperature 98.1 F 07/30/17 13:07 Pulse Rate 76 07/30/17 15:58 Respiratory Rate 16 07/30/17 16:47 Blood Pressure 157/43 07/30/17 16:47 O2 Sat by Pulse Oximetry 96 07/30/17 15:58 Oxygen Delivery Oxygen Delivery Room Air Medical Decision Making - Lab Data Result diagrams: 07/30/17 13:35 07/30/17 13:35 Lab Results 07/30/17 07/30/17 Range/Units 13:35 13:35 WBC 7.5 (4.3-11.1) K/mcL RBC 4.38 (4.19-5.50) M/mcL Hgb 14.4 (12.9-16.9) g/dL Hct 42.0 (37.5-50.1) % MCV 95.9 (83.0-100.0) fL MCH 32.9 (28.0-33.3) pg MCHC 34.3 (31.6-35.5) g/dL RDW 13.2 (11.5-14.5) % Plt Count 187 (140-400) K/mcL MPV 8.9 L (9.4-12.4) fL Immature Gran % 0.4 (0-4) % Seg Neutrophils % 73.2 % Lymphocytes % 17.7 % Monocytes % 7.0 % Eosinophils % 1.3 % Basophils % 0.4 % Neutrophils # 5.5 (1.6-8.9) K/mcL Lymphocytes # 1.3 (0.6-4.6) K/mcL Monocytes # 0.5 (0.0-1.3) K/mcL Eosinophils # 0.1 (0.0-0.6) K/mcL Basophils # 0.0 (0.0-0.2) K/mcL Sodium 135 L (136-145) mEq/L Potassium 4.0 (3.5-5.1) mEq/L Chloride 104 (98-107) mEq/L Carbon Dioxide 25 (23-29) mEq/L BUN 11 (8-23) mg/dL Creatinine 0.75 (0.70-1.30) mg/dL Est GFR ( Amer) > 60 (> 60) Est GFR (Non-Af Amer) > 60 (> 60) BUN/Creatinine Ratio 15 (6-26) Glucose 113 H (70-105) mg/dL Calculated Osmolality 280 (280-300) Calcium 9.7 (8.6-10.3) mg/dL Troponin I < 0.03 (< 0.04) ng/mL Attestation Statement - Attestation Attestation: I examined this patient and my medical decision-making was reviewed with the PIANO INSTRUCTOR/PA/Advanced Practice Nurse/Resident Physician. I agree with the documented findings, disposition and treatment plan as described except to the extent set forth below. Atraumatic left shoulder pain which she feels is similar to his myocardial infarction from the fall and he does not have any complaints of trauma and no pain with range of motion of the left shoulder. He denies any chest pain or tightness or discomfort or pressure and denies any diaphoresis or dyspnea. I did review the patient's EKG which does show normal sinus rhythm with a rate of 60 without acute ischemic change. Evaluation including troponin and chest x- ray is in progress. [id number]
--- NOTE | 2017-07-30 13:45 | Emergency Department Note ---
Disposition Clinical Impression: Concern about cardiovascular disease without diagnosis Left shoulder pain Qualifiers: Chronicity: acute Qualified Code(s): M25.512 - Pain in left shoulder Disposition: Admitted As Inpatient Condition: Fair Time of Disposition: 16:14 General Adult HPI - General Chief complaint: ED Extremity Problem,Nontraumatic Stated complaint: Left arm pain Time Seen by Provider: 07/30/17 13:16 Source: patient, family Limitations: no limitations Nursing Notes Reviewed: Yes Vital Signs Reviewed: Yes - History of Present Illness HPI Narrative: Mr. Miller presents from home are valuation of atraumatic left shoulder pain. Described as a deep dullness that radiates approximately to his neck and distally down to his mid humerus. Associated with intermittent dyspnea. Progressive to previous symptoms where he was diagnosed with an DE. He has no chest pain at this time and did not have chest pain previously on his DE in January for which he has 3 stents. ROS: Positive: As above Negative: Fever, chills, nausea, vomiting, chest pain, palpitations, diaphoresis , unusual back pains Pain Scale: 5 - Related Data Home Medications Medication Instructions Recorded Confirmed Atorvastatin Calcium [Lipitor] 20 mg PO QPM 02/04/17 07/30/17 Metoprolol [Lopressor] 12.5 mg PO BID 03/02/17 07/30/17 Clopidogrel [Plavix] 75 mg PO DAILY 07/30/17 07/30/17 Allergies Allergy/AdvReac Type Severity Reaction Status Date / Time Penicillins Allergy Hives Verified 07/30/17 13:07 All systems ED: reviewed and negative except as stated. Review of Systems: As Per HPI Past Medical History - Past Medical History Medical history: Reports: arthritis, coronary artery disease, hyperlipidemia, hypertension, liver disease, myocardial infarction Psychiatric history: Reports: no psych history - Social History Smoking Status: Never smoker Smokeless Tobacco Status: No Alcohol use: Reports: none Drug use: Reports: none Physical Exam Vital Signs Reviewed General: Patient is alert, oriented, and in no acute distress. Head: atraumatic, normocephalic Eye: normal appearance, no scleral icterus, no conjunctival injection ENT: mucous membranes moist, normal external ear exam Neck: normal inspection, trachea midline, full ROM Chest: normal inspection, symmetric chest rise. No tenderness to palpation. Respiratory: Good respiratory effort. Bilateral breath sounds are clear without wheezing, crackles, or rhonchi. Cardiovascular: Regular rate and rhythm. No clicks, rubs, gallops, or murmors. Normal heart sounds. Abdomen: Bowel sounds present normoactive x-4 quadrants. Abdomen is soft, nondistended, and nontender. No guarding or rebound. No organomegaly noted. Musculoskeletal: Spontaneously moving all extremities. Full painless active range of motion left shoulder. Left shoulder is nontender to palpation. Skin: warm, dry, intact. Neuro: Alert and oriented x4. Sensation light touch intact. Psych: Patient's affect is appropriate for situation. - General Limitations: no limitations General appearance: alert, in no apparent distress Course Course Narrative: EKG dated 30 Jul 2017 at 13:14 interpreted as sinus rhythm with rate of 60. Normal intervals. Borderline left axis. Nonspecific ST-T changes. Serum hematology is unremarkable. Serum chemistry is unremarkable; troponin is 0.03. Chest x-ray unremarkable per radiology read. I discussed the above the patient. Discussed my concerns given his multiple cardiac risk factors and his symptoms being very similar to his prior ACS. Also discussed his normal troponin in the context that he is very close to symptom onset in the need for repeated troponin continued evaluation. He agrees for admission for continued evaluation and management. Assessment: Left shoulder pain, concern for cardiac disease without any doses. I discussed the patient with the admitting hospitalist, Dr. Trevino, who agrees to accept the patient for continued evaluation monitoring for rule out ACS. Chest X-Ray 07/30/17 13:23 IMPRESSION: No evidence for acute cardiopulmonary process. D/ / Chele Gale MD / Chele Gale MD Interpreting Provider: Chele Gale MD Vital Signs Temperature 98.1 F 07/30/17 13:07 Pulse Rate 64 07/30/17 13:07 Respiratory Rate 15 07/30/17 13:07 Blood Pressure 168/95 07/30/17 13:07 O2 Sat by Pulse Oximetry 95 07/30/17 13:07 Temperature 98.5 F 07/30/17 18:42 Pulse Rate 80 07/30/17 18:42 Respiratory Rate 16 07/30/17 18:42 Blood Pressure 143/89 07/30/17 18:42 O2 Sat by Pulse Oximetry 92 07/30/17 18:42 Oxygen Delivery Oxygen Delivery Room Air Medical Decision Making - Lab Data Result diagrams: 07/30/17 13:35 07/30/17 13:35 Lab Results 07/30/17 07/30/17 Range/Units 13:35 13:35 WBC 7.5 (4.3-11.1) K/mcL RBC 4.38 (4.19-5.50) M/mcL Hgb 14.4 (12.9-16.9) g/dL Hct 42.0 (37.5-50.1) % MCV 95.9 (83.0-100.0) fL MCH 32.9 (28.0-33.3) pg MCHC 34.3 (31.6-35.5) g/dL RDW 13.2 (11.5-14.5) % Plt Count 187 (140-400) K/mcL MPV 8.9 L (9.4-12.4) fL Immature Gran % 0.4 (0-4) % Seg Neutrophils % 73.2 % Lymphocytes % 17.7 % Monocytes % 7.0 % Eosinophils % 1.3 % Basophils % 0.4 % Neutrophils # 5.5 (1.6-8.9) K/mcL Lymphocytes # 1.3 (0.6-4.6) K/mcL Monocytes # 0.5 (0.0-1.3) K/mcL Eosinophils # 0.1 (0.0-0.6) K/mcL Basophils # 0.0 (0.0-0.2) K/mcL Sodium 135 L (136-145) mEq/L Potassium 4.0 (3.5-5.1) mEq/L Chloride 104 (98-107) mEq/L Carbon Dioxide 25 (23-29) mEq/L BUN 11 (8-23) mg/dL Creatinine 0.75 (0.70-1.30) mg/dL Est GFR ( Amer) > 60 (> 60) Est GFR (Non-Af Amer) > 60 (> 60) BUN/Creatinine Ratio 15 (6-26) Glucose 113 H (70-105) mg/dL Calculated Osmolality 280 (280-300) Calcium 9.7 (8.6-10.3) mg/dL Troponin I < 0.03 (< 0.04) ng/mL Heart Score - Score History: Moderately Suspicious EKG: Non Specific repolarisation Disturbance Age: Greater than 65 Risk Factors: Equal/Greater than 3 risk factor or history of atherosclerotic disease Troponin: Less than normal limit HEART Score Total: 6
[2017-07-30 14:06] LABS: Basophils % 0.4 %; Eosinophils # 0.1 K/mcL (0.0-0.6); Eosinophils % 1.3 %; Hemoglobin 14.4 g/dL (12.9-16.9); Immature Granulocytes % 0.4 % (0-4); Lymphocytes # 1.3 K/mcL (0.6-4.6); Lymphocytes % 17.7 %; Mean Corpuscular HGB Conc 34.3 g/dL (31.6-35.5); Mean Corpuscular Hemoglobin 32.9 pg (28.0-33.3); Mean Corpuscular Volume 95.9 fL (83.0-100.0); Mean Platelet Volume 8.9 fL (9.4-12.4); Monocytes # 0.5 K/mcL (0.0-1.3); Neutrophils # 5.5 K/mcL (1.6-8.9); Platelet Count 187 K/mcL (140-400); Red Blood Count 4.38 M/mcL (4.19-5.50); Red Cell Distribution Width 13.2 % (11.5-14.5); Segmented Neutrophils % 73.2 %
[2017-07-30 14:08] LABS: BUN/Creatinine Ratio 15 (6-26); Blood Urea Nitrogen 11 mg/dL (8-23); Calcium 9.7 mg/dL (8.6-10.3); Carbon Dioxide 25 mEq/L (23-29); Chloride 104 mEq/L (98-107); Glucose 113 mg/dL (70-105); Osmolality,Calculated 280 (280-300); Sodium 135 mEq/L (136-145); eGFR For African Americans > 60 (> 60); eGFR For Non-African Americans > 60 (> 60)
[2017-07-30 14:09] LABS: Troponin I < 0.03 ng/mL (< 0.04)
[2017-07-30] MEDS ORDERED: Naloxone 0.4 MG/ML INJ IVP PRN (18:08)
[2017-07-30] MEDS ORDERED: *HR* HYDROcodone/Acet 5/325 mg TABLET PO PRN (18:08)
--- NOTE | 2017-07-30 18:17 | Internal Med History&Physical ---
Date of Encounter: 07/30/17 Time of Encounter: 18:14 Internal Medicine - H&P: HPI Chief complaint: Left-sided shoulder pain and chest pressure Admitted From: Emergency Dept Plans for Post Hospital Care: Home History of present illness: Mr. Miller is a 67 year old male resume medical history of hypertension, hyperlipidemia, coronary artery disease, previous myocardial infarction, small joint pain and liver disease. Patient presented to emergency room as he was getting left-sided chest pressure which was radiating to his left shoulder. Patient complains that he has a persistent left shoulder pain which was similar to the pain he experienced when he had a previous myocardial infarction. Patient decided to come to hospital as his pain was persistent and was not getting relieved even by rest or taking a nitroglycerin. Patient denies fever, chills, vomiting, palpitation, diaphoresis or any unusual back pain. Workup in the emergency room: Patient was evaluated in the emergency room. Basic labs were drawn. Chest x-ray was done. Reason for admission: Chest pain to rule out ACS. Heart score: 4 Family history: Noncontributory Past Med Surg Social Fam HX - Past Medical History Medical history: arthritis, coronary artery disease, hyperlipidemia, hypertension, liver disease, myocardial infarction Psychiatric history: no psych history - Past Surgical History Surgical History: tonsilectomy, other - Social History Smoking Status: Never smoker Smokeless Tobacco Status: No Alcohol use: none Drug use: none - Family History Father Living Status: Hx Family Cardiac Disorders: Yes (Father,brother) Hx Family Respiratory Disorders: Yes (Father,) Hx Family Cancer: Yes (grandfather) Hx Family GI Disorders: No Hx Family Endocrine Disorder: Yes (brother) Hx Family Neuromuscular Disorders: No Hx Family Neurologic Disorders: No Hx Family HEENT Disorders: No Hx Family Autoimmune Disorders: No Internal Medicine - H&P: Meds Atorvastatin Calcium [Lipitor] 20 mg PO QPM 02/04/17 [History] Metoprolol [Lopressor] 12.5 mg PO BID 03/02/17 [History] Clopidogrel [Plavix] 75 mg PO DAILY 07/30/17 [History] 3 Allergy/AdvReac Type Severity Reaction Status Date / Time Penicillins Allergy Hives Verified 07/30/17 13:07 All Systems PM: A 10-system review of systems was performed and is negative for pertinent findings except as documented above in the HPI. - Constitutional Constitutional: no chills, no fever(s), no night sweats - EENT Eyes: no change in vision, no discharge, no pain, no photophobia Ears: no ear discharge, no ear pain, no tinnitus Nose, mouth and throat: no dysphagia, no nasal discharge, no neck pain, no sore throat - Cardiovascular Cardiovascular ROS IM: chest pain, no diaphoresis, no dyspnea, no lightheadedness, no palpitations, no syncope - Respiratory Respiratory: no cough, no dyspnea, no wheezing, no excessive phlegm production - Gastrointestinal Gastrointestinal: no abdominal pain, no diarrhea, no hematemesis, no hematochezia, no melena, no nausea, no vomiting - Musculoskeletal Musculoskeletal ROS IM: no numbness, no tingling - Integumentary Integumentary IM: no rash, no unusual bruising - Neurological Neurological ROS: no confusion, no convulsions, no focal weakness, no numbness, no tingling, no tremor(s) - Hematologic/Lymphatic Hematologic/Lymphatic: no easy bruising - Constitutional Vitals: Temp Pulse Resp BP Pulse Ox 98.6 F 90 20 155/84 94 07/30/17 17:37 07/30/17 17:37 07/30/17 17:37 07/30/17 17:37 07/30/17 17:37 General appearance: Present: A&O X 3, pleasant, no acute distress, answers questions appropriately - Head Head exam: Present: atraumatic, normocephalic - Eye Eye exam: Present: PERRL, conjuntiva pink, sclera anicteric Pupils: Present: PERRL - Neck Neck exam general surgery: Present: supple, trachea midline. Absent: lymphadenopathy - Respiratory Respiratory exam: Present: CTAB. Absent: accessory muscle use, rales, rhonchi, wheezes - Cardiovascular Cardiovascular exam: Present: RRR, +S1, +S2. Absent: diastolic murmur, gallop, rubs, systolic murmur - GI/Abdominal GI/Abdominal exam: Present: normal bowel sounds, soft, no peritoneal signs. Absent: distended, tenderness - Extremities Exam Extremities exam: Present: warm, radial pulses palpable and symmetrical. Absent : calf tenderness, cyanotic, pedal edema - Neurological Exam Neurological exam: Present: CN II-XII intact, oriented X3, no focal deficits. Absent: pronater drift, facial droop, speech deficit - Skin Skin exam: Present: dry, intact Internal Med - H&P Results - Labs CBC & Chem 7: 07/30/17 13:35 07/30/17 13:35 - Assessment and plan (1) Left shoulder pain Current Visit: Yes Status: Acute Assessment and plan: Patient is a left shoulder pain which was mimicking like to pain when he had a myocardial infarction a few months back. Admit as observation. Cycle troponin. If troponins are positive then please call cardiology. If 3 troponins are negative then please consider orthopedic evaluation. Qualifiers: Chronicity: acute Qualified Code(s): M25.512 - Pain in left shoulder (2) Hypertension Current Visit: No Status: Acute Assessment and plan: Patient blood pressure is very well controlled. We will continue same home medications now Qualifiers: Hypertension type: essential hypertension Qualified Code(s): I10 - Essential (primary) hypertension (3) Hyperlipidemia Current Visit: No Status: Acute Assessment and plan: Patient is known to have hyperlipidemia. At this point we will continue home medication. Qualifiers: Hyperlipidemia type: unspecified Qualified Code(s): E78.5 - Hyperlipidemia , unspecified (4) Coronary artery disease Current Visit: Yes Status: Acute Assessment and plan: Patient is known to have a coronary artery disease. At this point patient does not have chest pain but he has a left shoulder pain which is making like a pain when he had a MO. Patient recently had a echocardiogram/stress test/cardiac catheter and less than 1 year ago. Qualifiers: Coronary Disease-Associated Artery/Lesion type: [place] artery [place] vs. transplanted heart: [place] heart Associated angina: with stable angina Qualified Code(s): I25.118 - Atherosclerotic heart disease of [place] coronary artery with other forms of angina pectoris (5) DVT prophylaxis Current Visit: No Status: Acute Assessment and plan: Heparin Medical decision making: This patient has a moderate to severe risk of worsening in spite of being on appropriate medication due to the underlying complex comorbid condition. - Time Spent With Patient Total time spent is greater than 50% in coordination of care (as documented) at patient's floor/unit and/or counseling patient:
[2017-07-30] MEDS: *HR* Heparin 5,000 UNIT/ML VIAL SQ SCH (21:10)
[2017-07-31 01:47] LABS: Basophils % 0.3 %; Eosinophils % 0.3 %; Hematocrit 41.7 % (37.5-50.1); Hemoglobin 14.4 g/dL (12.9-16.9); Immature Granulocytes % 0.4 % (0-4); Lymphocytes # 1.6 K/mcL (0.6-4.6); Lymphocytes % 15.4 %; Mean Corpuscular HGB Conc 34.5 g/dL (31.6-35.5); Mean Corpuscular Volume 95.6 fL (83.0-100.0); Monocytes % 9.2 %; Neutrophils # 7.7 K/mcL (1.6-8.9); Platelet Count 205 K/mcL (140-400); Red Blood Count 4.36 M/mcL (4.19-5.50); Red Cell Distribution Width 13.1 % (11.5-14.5); Segmented Neutrophils % 74.4 %
[2017-07-31 01:54] LABS: INR 1.2; Prothrombin Time 12.6 Seconds (9.4-12.1)
[2017-07-31 01:56] LABS: Activated Partial Thrombo Time 29.7 Seconds (26.0-36.0)
[2017-07-31 02:15] LABS: Alanine Aminotransferase 40 Units/L (7-52); Albumin 4.3 g/dL (3.5-5.7); Albumin/Globulin Ratio 1.4 (1.1-2.2); Alkaline Phosphatase 63 Units/L (34-104); Aspartate Amino Transferase 41 Units/L (13-39); BUN/Creatinine Ratio 12 (6-26); Blood Urea Nitrogen 10 mg/dL (8-23); Calcium 9.5 mg/dL (8.6-10.3); Carbon Dioxide 24 mEq/L (23-29); Chloride 102 mEq/L (98-107); Cholesterol 115 mg/dL (< 200); Glucose 147 mg/dL (70-105); HDL Cholesterol 38 mg/dL (40-59); LDL Cholesterol,Calculated 56 mg/dL (0-99); Magnesium 1.8 mg/dL (1.6-2.6); Osmolality,Calculated 280 (280-300); Phosphorous 2.2 mg/dL (2.7-4.5); Potassium 3.8 mEq/L (3.5-5.1); Sodium 134 mEq/L (136-145); Total Protein 7.3 g/dL (6.4-8.9); Triglycerides 104 mg/dL (< 150); eGFR For African Americans > 60 (> 60); eGFR For Non-African Americans > 60 (> 60)
[2017-07-31] MEDS: *HR* Heparin 5,000 UNIT/ML VIAL SQ SCH ×3 (05:56→20:14)
--- NOTE | 2017-07-31 06:29 | Electrocardiograph Report ---
[facility] 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
--- NOTE | 2017-07-31 14:02 | Internal Med Progress Note ---
Date of Encounter: 07/31/17 Time of Encounter: 13:50 - Assessment and plan (1) Coronary artery disease Current Visit: Yes Status: Acute Assessment and plan: per hx. 01/2017 [facility] PTCA/Drug-Eluting Stent placement in the mid and distal LAD. Now presented with chest discomfort, bilateral shoulder discomfort and generalized weakness/fatigue similar to previous cardiac event. Troponin negative, EKG without acute ST changes. Of note patient has only been on Plavix for the last 3 months; he stopped ASA due to nosebleeds. Concerned forfor restenosis of stents since he has not been on uninterrupted dual antiplatelet therapy. Continue monitor on telemetry. Cardiology consulted. Restart ASA, cont plavix. Check limited echo. NPO at midnight Qualifiers: Coronary Disease-Associated Artery/Lesion type: [place] artery [place] vs. transplanted heart: [place] heart Associated angina: with stable angina Qualified Code(s): I25.118 - Atherosclerotic heart disease of [place] coronary artery with other forms of angina pectoris (2) Hypertension Current Visit: No Status: Acute Assessment and plan: per hx. BP controlled. Cont home BP medications. Monitor BP and titrate PRN Qualifiers: Hypertension type: essential hypertension Qualified Code(s): I10 - Essential (primary) hypertension (3) Hyperlipidemia Current Visit: No Status: Acute Assessment and plan: per hx. Cont home statin Qualifiers: Hyperlipidemia type: unspecified Qualified Code(s): E78.5 - Hyperlipidemia , unspecified (4) Left shoulder pain Current Visit: Yes Status: Acute Assessment and plan: with left shoulder pain which was mimicking pain similar myocardial infarction a few months back. Cardiac workup as noted above. Qualifiers: Chronicity: acute Qualified Code(s): M25.512 - Pain in left shoulder (5) DVT prophylaxis Current Visit: No Status: Acute Assessment and plan: Heparin - Time Spent With Patient Total time spent is greater than 50% in coordination of care (as documented) at patient's floor/unit and/or counseling patient: - Subjective Interval history: Seen and examined at bedside. Patient is new to me, information obtained from chart review and patient report. Still with complaint of achiness to bilateral shoulders which he says is similar to last cardiac event. at bedside and reports patient has been overall weak and tired over the last 2 weeks not able to complete projects which is also similar to last cardiac event. No SOB - Constitutional Vitals: Temp Pulse Resp BP Pulse Ox 98.8 F 68 16 116/72 93 07/31/17 11:40 07/31/17 11:40 07/31/17 11:40 07/31/17 11:40 07/31/17 11:40 General appearance: Present: A&O X 3, pleasant, no acute distress, answers questions appropriately - Head Head exam: Present: atraumatic, normocephalic - Eye Eye exam: Present: PERRL, conjuntiva pink, sclera anicteric Pupils: Present: PERRL - Neck Neck exam general surgery: Present: supple, trachea midline. Absent: lymphadenopathy - Respiratory Respiratory exam: Present: CTAB. Absent: accessory muscle use, rales, rhonchi, wheezes - Cardiovascular Cardiovascular exam: Present: RRR, +S1, +S2. Absent: diastolic murmur, gallop, rubs, systolic murmur - GI/Abdominal GI/Abdominal exam: Present: normal bowel sounds, soft, no peritoneal signs. Absent: distended, tenderness - Extremities Exam Extremities exam: Present: warm, radial pulses palpable and symmetrical. Absent : calf tenderness, cyanotic, pedal edema - Neurological Exam Neurological exam: Present: CN II-XII intact, oriented X3, no focal deficits. Absent: pronater drift, facial droop, speech deficit - Skin Skin exam: Present: dry, intact Internal Medicine: Result - Labs CBC & Chem 7: 07/31/17 00:47 07/31/17 00:47 Labs: Short CBC 07/31/17 Range/Units 00:47 WBC 10.3 (4.3-11.1) K/mcL Hgb 14.4 (12.9-16.9) g/dL Hct 41.7 (37.5-50.1) % Plt Count 205 (140-400) K/mcL Neutrophils # 7.7 (1.6-8.9) K/mcL BMP 07/31/17 00:47 Sodium 134 L Potassium 3.8 Chloride 102 Carbon Dioxide 24 BUN 10 Creatinine 0.82 Glucose 147 H Calcium 9.5 Cardiac Enzymes 07/30/17 07/31/17 07/31/17 Range/Units 18:23 00:47 06:33 Troponin I < 0.03 < 0.03 < 0.03 (< 0.04) ng/mL Liver Function 07/31/17 Range/Units 00:47 Total Bilirubin 1.0 (0.3-1.0) mg/dL AST 41 H (13-39) Units/L ALT 40 (7-52) Units/L Alkaline Phosphatase 63 (34-104) Units/L Albumin 4.3 (3.5-5.7) g/dL - ABG Interpretation ABG results: PT/INR, D-dimer PT 12.6 Seconds (9.4-12.1) H 07/31/17 00:47 Consult Discharge Plan - Plan Referrals: Alistair Perez MD [Primary Care Provider] -
[2017-07-31] MEDS: Aspirin Enteric Coated 81 MG Tablet PO SCH (16:14)
[2017-08-01] MEDS: *HR* Heparin 5,000 UNIT/ML VIAL SQ SCH (05:46)
[2017-08-01] MEDS: Aspirin Enteric Coated 81 MG Tablet PO SCH (08:09)
--- NOTE | 2017-08-01 09:11 | Cardiology Consult Note ---
<Alfonso Bright - Last Filed: 08/01/17 10:29> Date of Encounter: 08/01/17 Time of Encounter: 09:10 Assessment and Plan (1) Coronary artery disease Current Visit: Yes Status: Chronic Per Cardiology: Atypical left shoulder and back pain. Symptoms somewhat similar prior to my, however different than what he experienced. Trops negative x4. Limited echo pending. I discussed with patient and and assuming no EF changes on echo agreeable to monitoring and surveillance and follow-up in outpatient setting. We discussed potential stress testing, however agreeable to monitor and observe. He is agreeable to resume aspirin and will monitor for any bleeding with Plavix. Recommend provide prescription for nitroglycerin pills at discharge-- education provided on how to utilize and when to call 911. Will discuss with Dr. Zelaya, plan to sign off, reconsult as needed, follow up arranged unless any abnormal findings on echo. All questions answered. Qualifiers: Coronary Disease-Associated Artery/Lesion type: [place] artery [place] vs. transplanted heart: [place] heart Associated angina: with stable angina Qualified Code(s): I25.118 - Atherosclerotic heart disease of [place] coronary artery with other forms of angina pectoris Discussion w patient/family: The assessment and plan as outlined above was discussed with the patient and/or family members who expressed understanding and agreement. All questions were answered. Thank you for involving us in the care of your patient. Please call with any questions. History of Present Illness Consult date: 08/01/17 Requesting physician: Sophie Kendall Consult reason: CP, Hx CAD Chief complaint: Left Shoulder pain History of present illness: Mr. Miller is a 67 year old male with a relevant past medical history of PAD, CAD , hypertension, hyperlipidemia. Cardiology consult for L shoulder pain, hx CAD. Patient seen with at bedside. Reports complete cardiac rehabilitation with no difficulties. Had been his normal state of health until Wednesday morning. He reports he developed left shoulder pain discomfort with radiation down his back that lasted for a few hours at rest while talking. Symptoms now resolved. He reports he did not utilize nitroglycerin glycerin pills, does not have any. He does report. Mild increase in overall baseline fatigue. Denies any chest pain. Denies any shortness of breath or palpitations. Reports self discontinued aspirin a few weeks ago due to nosebleeds. Reports compliance with Plavix. Now back on aspirin and Plavix denies any current bleeding or blood loss. He does report he was working on a riding mower the previous day. He does report symptoms prior to his IN January 2017 with bilateral shoulder pain with radiation down both arms. He reports these symptoms are different than what he experienced with his IN. Past Med Surg Social Fam HX - Past Medical History Attestation: Yes The following information was validated with the patient. Source: patient, old records reviewed Medical history: arthritis, coronary artery disease, hyperlipidemia, hypertension, liver disease, myocardial infarction Psychiatric history: no psych history - Past Surgical History Surgical History: tonsilectomy, other - Social History Smoking Status: Never smoker Smokeless Tobacco Status: No Alcohol use: none Drug use: none - Family History Father Living Status: Hx Family Cardiac Disorders: Yes (Father,brother) Hx Family Respiratory Disorders: Yes (Father,) Hx Family Cancer: Yes (grandfather) Hx Family GI Disorders: No Hx Family Endocrine Disorder: Yes (brother) Hx Family Neuromuscular Disorders: No Hx Family Neurologic Disorders: No Hx Family HEENT Disorders: No Hx Family Autoimmune Disorders: No Medications and Allergies Atorvastatin Calcium [Lipitor] 20 mg PO QPM 02/04/17 [History] Metoprolol [Lopressor] 12.5 mg PO BID 03/02/17 [History] Clopidogrel [Plavix] 75 mg PO DAILY 07/30/17 [History] Aspirin Enteric Coated [Aspirin EC] 81 mg PO DAILY #30 tablet. 08/01/17 [Rx] Nitroglycerin 0.4 mg SL Q5MIN PRN #30 tab.subl 08/01/17 [Rx] 3 Allergy/AdvReac Type Severity Reaction Status Date / Time Penicillins Allergy Hives Verified 07/30/17 13:07 All Systems Review: The remainder of the systems were reviewed and are negative - Constitutional Constitutional: fatigue - Cardiovascular Cardiovascular: as per HPI - Musculoskeletal Musculoskeletal: back pain, other (Left shoulder pain) Physical Examination Vital Signs, Last 4 Hours Temp Pulse Resp BP Pulse Ox 08/01/17 07:05 98.7 F 69 14 126/76 93 General: Conversant, No Apparent Distress HEENT: Atraumatic, Normocephaly, Mucus Membranes Moist Neck: No JVD, Normal carotid pulses Cardiac: Reg Rate and Rhythm, Normal S1 and S2, No Murmur Lungs: Normal Breath Sounds, No Wheeze, Rales, Rhonchi Neuro: Alert and responsive, No focal deficits noted Abdomen: Soft, Non-Tender Skin: No rashes noted on visualized skin Musculoskeletal: No Chest Wall Tenderness Extremities: No Clubbing, No Cyanosis, No Edema, Normal Pulses Results 07/31/17 00:47 07/31/17 00:47 Laboratory Tests 07/30/17 07/30/17 07/31/17 13:35 18:23 00:47 Hgb Hct INR AST ALT Troponin I < 0.03 < 0.03 < 0.03 B-Natriuretic Peptide LDL Cholesterol, Calc 07/31/17 07/31/17 07/31/17 00:47 00:47 00:47 Hgb 14.4 Hct 41.7 INR 1.2 AST 41 H ALT 40 Troponin I B-Natriuretic Peptide LDL Cholesterol, Calc 56 07/31/17 07/31/17 00:47 06:33 Hgb Hct INR AST ALT Troponin I < 0.03 B-Natriuretic Peptide 45 LDL Cholesterol, Calc ITS Impressions Chest X-Ray 07/30/17 13:23 IMPRESSION: No evidence for acute cardiopulmonary process. D/ / Chele Gale MD / Chele Gale MD Interpreting Provider: Chele Gale MD Active Medications Hydrocodone Bitart/Acetaminophen ([place] 5-325 Mg) 1 tab PO Q6HR PRN PRN Reason: Moderate Pain Stop: 01/29/18 18:09 Last Admin: 07/30/17 21:09 Dose: 1 tab Aspirin (Aspirin Ec) 81 mg PO DAILY ROSHNI Stop: 01/30/18 14:46 Last Admin: 08/01/17 08:09 Dose: 81 mg Atorvastatin Calcium (Lipitor) 20 mg PO QPM ROSHNI Stop: 01/30/18 18:01 Last Admin: 07/31/17 16:14 Dose: 20 mg Clopidogrel Bisulfate (Plavix) 75 mg PO DAILY ROSHNI Stop: 01/30/18 09:01 Last Admin: 08/01/17 08:09 Dose: 75 mg Heparin Sodium (Porcine) (Heparin) 5,000 unit SQ Q8HCO ROSHNI Stop: 01/29/18 22:01 Last Admin: 08/01/17 05:46 Dose: 5,000 unit Metoprolol Tartrate (Lopressor) 12.5 mg PO BID [facility] Stop: 01/29/18 21:01 Last Admin: 08/01/17 08:09 Dose: 12.5 mg Naloxone HCl (Narcan) 0.4 mg IVP Q2MIN PRN PRN Reason: SEE COMMENTS Stop: 01/29/18 18:09 - Imaging and Cardiology Echo: pending, report reviewed Cardiac cath: report reviewed - EKG Interpretation EKG results cardiology: personally reviewed (Sinus rhythm in the 60s, no active ischemia appreciated), normal ECG, sinus rhythm Consult Discharge Plan - Plan Instructions: Aspirin (By mouth), Coronary Artery Disease (DC) Referrals: Alistair Perez MD [Primary Care Provider] - Prescriptions: Nitroglycerin 0.4 mg SL Q5MIN PRN #30 tab.subl PRN Reason: Chest Pain Aspirin Enteric Coated [Aspirin EC] 81 mg PO DAILY #30 tablet. <Leila Zelaya - Last Filed: 08/01/17 12:38> Date of Encounter: 08/01/17 - Attending Attestation I examined this patient and my medical decision-making was reviewed with the [employer] SERVICE MANAGER. I agree with the documented findings, disposition and treatment plan as described. Mr. Miller presents with atypical chest pain, negative troponin and no ischemic ECG findings. Echo demonstrates normal LVEF. Further testing does not appear warranted at this time. Continue medical management. Stongly encouraged not stopping DAPT. If patient has further nose bleeds, recommend referral to ENT. Recommend outpatient cardiology follow up. Patient and agreeable with plan. Will sign off. Assessment and Plan Discussion w patient/family: The assessment and plan as outlined above was discussed with the patient and/or family members who expressed understanding and agreement. All questions were answered. Thank you for involving us in the care of your patient. Please call with any questions. History of Present Illness History of present illness: Mr. Miller is a 67 year old male All Systems Review: The remainder of the systems were reviewed and are negative Physical Examination Vital Signs, Last 4 Hours Temp Pulse Resp BP Pulse Ox 08/01/17 11:54 98.7 F 71 14 125/78 92 Results 07/31/17 00:47 07/31/17 00:47
[2017-08-01] MEDS ORDERED: Nitroglycerin 0.4 MG TAB.SUBL SL PRN (10:28)
--- NOTE | 2017-08-01 10:37 | Event Note ---
Date of Encounter: 08/01/17 Time of Encounter: 10:30 - Cardiology Event Note Of note, peak troponin in setting of non-STEMI January 2017 was 21.76. Catheterization at that time showed mid LAD 90% status post drug-eluting stent, distal LAD 70% status post early in-stent, distal circumflex 80% status post drug-eluting stent. Has remaining diagonal one 60%, OM1 65%, and mid RCA 50% lesions.
[2017-08-01 11:55] VITALS: BP 125/78
--- NOTE | 2017-08-01 12:34 | Discharge Summary ---
Date of Encounter: 08/01/17 Time of Encounter: 12:31 - Discharge Diagnosis (1) Coronary artery disease Priority: Primary Status: Chronic Assessment and Plan: per hx. 01/2017 [facility] PTCA/Drug-Eluting Stent placement in the mid and distal LAD. Now presented with chest discomfort, bilateral shoulder discomfort and generalized weakness/fatigue similar to previous cardiac event. Troponin negative, EKG without acute ST changes. Of note patient has only been on Plavix for the last 3 months; he stopped ASA due to nosebleeds. 07/31/17 limited TTE with EF 55%, normal LV systolic function and no wall motion abnormalities. Evaluated by cardiology who did not recommend further cardiac workup at this time. Resume ASA, continue home Plavix, BB, statin, PRN SL nitro. Follow-up with cardiology outpatient. Qualifiers: Coronary Disease-Associated Artery/Lesion type: [place] artery [place] vs. transplanted heart: [place] heart Associated angina: with stable angina Qualified Code(s): I25.118 - Atherosclerotic heart disease of [place] coronary artery with other forms of angina pectoris (2) Hypertension Priority: Primary Status: Acute Assessment and Plan: per hx. BP controlled. Cont home BP medications. Qualifiers: Hypertension type: essential hypertension Qualified Code(s): I10 - Essential (primary) hypertension (3) Hyperlipidemia Priority: Primary Status: Acute Assessment and Plan: per hx. Cont home statin Qualifiers: Hyperlipidemia type: unspecified Qualified Code(s): E78.5 - Hyperlipidemia , unspecified (4) Left shoulder pain Priority: Primary Status: Acute Assessment and Plan: Suspect musculoskeletal etiology as patient reported lifting heavy lawn equipment a few days prior. Symptoms improved with supportive care. Qualifiers: Chronicity: acute Qualified Code(s): M25.512 - Pain in left shoulder Hospital course: See assessment and plan for Hospital course Discharge discussed with: patient (Seen and examined at bedside. Still has some mild left shoulder discomfort but overall improved. No chest pain or shortness of breath. Discussed with cardiology and okay to discharge home from a cardiology standpoint. Patient advised on not stopping Plavix or ASA without talking with hydrodynamicist and he verbalized understanding.) - Time Spent with Patient Total time spent providing and/or coordinating discharge services: - Discharge Medications Prescriptions: Nitroglycerin 0.4 mg SL Q5MIN PRN #30 tab.subl PRN Reason: Chest Pain Aspirin Enteric Coated [Aspirin EC] 81 mg PO DAILY #30 tablet. Home Medications: Atorvastatin Calcium [Lipitor] 20 mg PO QPM 02/04/17 [History] Metoprolol [Lopressor] 12.5 mg PO BID 03/02/17 [History] Clopidogrel [Plavix] 75 mg PO DAILY 07/30/17 [History] Aspirin Enteric Coated [Aspirin EC] 81 mg PO DAILY #30 tablet. 08/01/17 [Rx] Nitroglycerin 0.4 mg SL Q5MIN PRN #30 tab.subl 08/01/17 [Rx] Allergies/Adverse Reactions: 3 Allergy/AdvReac Type Severity Reaction Status Date / Time Penicillins Allergy Hives Verified 07/30/17 13:07 Date of admission: 07/30/17 16:18 Primary care physician: Alistair Perez MD Consults: 07/31/17 10:57 Consult to Cardiology [CONS] Routine Comment: Consulting Provider: Cardiology [facility] Reason for Consult: chest pain similar to previous NC Call Completed: Yes Discharging clinician: Sophie Kendall Anticipated date of discharge: 08/01/17 - Constitutional Vitals: Temp Pulse Resp BP Pulse Ox 98.7 F 71 14 125/78 92 08/01/17 11:54 08/01/17 11:54 08/01/17 11:54 08/01/17 11:54 08/01/17 11:54 General appearance: Present: A&O X 3, pleasant, no acute distress, answers questions appropriately - Head Head exam: Present: atraumatic, normocephalic - Eye Eye exam: Present: PERRL, conjuntiva pink, sclera anicteric Pupils: Present: PERRL - Neck Neck exam general surgery: Present: supple, trachea midline. Absent: lymphadenopathy - Respiratory Respiratory exam: Present: CTAB. Absent: accessory muscle use, rales, rhonchi, wheezes - Cardiovascular Cardiovascular exam: Present: RRR, +S1, +S2. Absent: diastolic murmur, gallop, rubs, systolic murmur - GI/Abdominal GI/Abdominal exam: Present: normal bowel sounds, soft, no peritoneal signs. Absent: distended, tenderness - Extremities Exam Extremities exam: Present: warm, radial pulses palpable and symmetrical. Absent : calf tenderness, cyanotic, pedal edema - Neurological Exam Neurological exam: Present: CN II-XII intact, oriented X3, no focal deficits. Absent: pronater drift, facial droop, speech deficit - Skin Skin exam: Present: dry, intact - Patient Status Disposition: Home, Self-Care Condition: Good Functional capacity at discharge: independent ambulation Overall status at discharge: patient is back to baseline - Discharge Instructions Instructions: Coronary Artery Disease (DC), Aspirin (By mouth) Follow Up With: Alistair Perez MD [Primary Care Provider] - (Please call for follow-up appointment within 5-7 days) - Diet and Activity Activity: increase activity as tolerated Diet: low fat, low cholesterol
== END 2017-08-01 13:27 | disposition home or self-care (01) ==
LOC: 3BNU 13:03 → EMEROO 13:03 → 3BNU 17:03
PROVIDERS: ADMIT Internal Medicine; ATTEND Internal Medicine